=== PATIENT | female | born 1990 | race Hispanic/Latino ===

== ENCOUNTER 2017-01-14 13:58 | Emergency (ER) | payer MEDICAID ==
[2017-01-14 13:58] VITALS: BMI 17.2
[2017-01-14 14:43] VITALS: BP 106/65; PULSE 63; RESP 16; TEMP 97.5; O2SAT 100
--- NOTE | 2017-01-14 15:03 | C.PDOC ---
History Of Present Illness 26 y/o female presents to ED with complaints of nausea and mild constipation for 3 days. Patient also complaints of fever at night and night sweats. Patient has Hx of being a Heroin abuser, reports using 4 bags daily but cut off to two bags daily 1 week ago due to an appointment with new PMD for Suboxone therapy. Patient states she is late on her menses and she is sexually active without protection but says she has an irregular menses due to drug abuse. Patient denies cough, sore throat, n/v/d, chest pain, abdominal pain, urinary symptoms or any other complaints of this time. Time Seen by Provider: 01/14/17 14:33 Chief Complaint (Nursing): Medical Clearance History Per: Patient History/Exam Limitations: no limitations Onset/Duration Of Symptoms: Days Current Symptoms Are (Timing): Still Present Past Medical History Reviewed: Historical Data, Nursing Documentation, Vital Signs Vital Signs: Last Vital Signs Temp 97.5 F L 01/14/17 14:25 Pulse 63 01/14/17 14:25 Resp 16 01/14/17 14:25 BP 106/65 01/14/17 14:25 Pulse Ox 100 01/14/17 15:24 - Medical History PMH: Anxiety (severe), Depression, Hepatitis (C) - [facility] Procedures DETOXIFICATION SERVICES FOR SUBSTANCE ABUSE TREATMENT (08/08/16) GROUP METAL CUT OFF SAW TENDER FOR SUBSTANCE ABUSE TREATMENT, PSYCHOEDUCATION (08/08/16) MANUAL REMOVAL-PLACENTA (09/16/13) PHARMACOTHERAPY FOR SUBSTANCE ABUSE, OTH REPLACE MED (08/08/16) Family History: States: Unknown Family Hx - Social History Hx Tobacco Use: Yes Hx Alcohol Use: No Hx Substance Use: Yes - Immunization History Hx Tetanus Toxoid Vaccination: No Hx Influenza Vaccination: Yes Hx Pneumococcal Vaccination: No Review Of Systems Except As Marked, All Systems Reviewed And Found Negative. Constitutional: Positive for: Fever, Sweats. Negative for: Chills Cardiovascular: Negative for: Chest Pain Gastrointestinal: Positive for: Nausea, Constipation. Negative for: Vomiting, Diarrhea Genitourinary: Negative for: Dysuria Musculoskeletal: Negative for: Back Pain Physical Exam - Physical Exam Appears: Non-toxic, No Acute Distress Skin: Normal Color, Warm Head: Atraumatic, Normacephalic Eye(s): bilateral: Normal Inspection, PERRL, EOMI Nose: Normal Oral Mucosa: Moist Throat: Normal, No Erythema Neck: Normal ROM Cardiovascular: Rhythm Regular, No Murmur Gastrointestinal/Abdominal: Soft, No Tenderness, No Guarding, No Rebound Extremity: Normal ROM Neurological/Psych: Oriented x3, Normal Speech ED Course And Treatment O2 Sat by Pulse Oximetry: 100 (RA) Pulse Ox Interpretation: Normal Medical Decision Making Medical Decision Makin yo F presents for concern for possible . Although based on history and exam, symptoms are likely due to heroin withdrawal. HCG was negative for patient, patient will be discharged home and advised she makes the appointment with PMD for Suboxone therapy as scheduled. Disposition - Disposition Disposition: HOME/ ROUTINE Disposition Time: 15:00 Condition: GOOD Additional Instructions: Advised to f/u with your pmd as scheduled without fail. Return to the ER at any time for any new or worsening symptoms. Instructions: Opioid Withdrawal (ED) Print Language: INDONESIAN - Clinical Impression Clinical Impression: Opioid use disorder, severe, dependence, Opioid withdrawal, test negative - PA / TOBACCO CLASSER / Resident Statement MD/DO has reviewed & agrees with the documentation as recorded. - Scribe Statement The provider has reviewed the documentation as recorded by the Edilmaibraven Grimes All medical record entries made by the Yyeo were at my direction and personally dictated by me. I have reviewed the chart and agree that the record accurately reflects my personal performance of the history, physical exam, medical decision making, and the department course for this patient. I have also personally directed, reviewed, and agree with the discharge instructions and disposition.
== END 2017-01-14 15:03 | disposition home or self-care (01) ==
LOC: C.ER 13:58
DX: F11.20 Opioid dependence, uncomplicated (principal); F11.23 Opioid dependence with withdrawal; Z32.02 Encounter for pregnancy test, result negative

== ENCOUNTER 2017-01-23 18:38 | Inpatient (IN) | payer MEDICAID ==
[2017-01-23 18:38] VITALS: BMI 17.2
--- NOTE | 2017-01-23 19:25 | C.PDOC ---
History Of Present Illness Patient is a 26 year old female who is a prescreen for detox from heroin, benzos and cocaine. Patient states in 1 day she injects 4 bags of heroin to the arms bilaterally, takes klonopin and $20 of cocaine a day. Denies any physical complaints at this time. Time Seen by Provider: 01/23/17 18:54 Chief Complaint (Nursing): Substance Abuse History Per: Patient History/Exam Limitations: no limitations Onset/Duration Of Symptoms: Hrs Suicide/Self Injury Attempted (Context): None Modifying Factor(s): Narcotics, Cocaine Associated Symptoms: denies: Depression, Suicidal Thoughts, Suicidal Plan Recent travel outside of the [place]: No Past Medical History Reviewed: Historical Data, Nursing Documentation, Vital Signs Vital Signs: Last Vital Signs Temp 98 F 01/23/17 18:43 Pulse 88 01/23/17 18:43 Resp 20 01/23/17 18:43 BP 108/74 01/23/17 18:43 Pulse Ox 98 01/23/17 22:04 - Medical History PMH: Anxiety, Depression, Hepatitis (C) - [facility] Procedures DETOXIFICATION SERVICES FOR SUBSTANCE ABUSE TREATMENT (08/08/16) GROUP NATIONAL PARK RANGER FOR SUBSTANCE ABUSE TREATMENT, PSYCHOEDUCATION (08/08/16) MANUAL REMOVAL-PLACENTA (09/16/13) PHARMACOTHERAPY FOR SUBSTANCE ABUSE, OTH REPLACE MED (08/08/16) Family History: States: Unknown Family Hx - Social History Hx Tobacco Use: Yes Hx Alcohol Use: No Hx Substance Use: Yes - Immunization History Hx Tetanus Toxoid Vaccination: Yes Hx Influenza Vaccination: No Hx Pneumococcal Vaccination: No Review Of Systems Constitutional: Negative for: Fever, Chills Gastrointestinal: Negative for: Nausea, Vomiting, Diarrhea Physical Exam - Physical Exam Appears: Non-toxic, No Acute Distress Skin: Normal Color, Warm, Dry Head: Atraumatic, Normacephalic Oral Mucosa: Moist Chest: Symmetrical, No Tenderness Cardiovascular: Rhythm Regular, No Murmur Respiratory: Normal Breath Sounds, No Rales, No Rhonchi, No Wheezing Gastrointestinal/Abdominal: Soft, No Tenderness Extremity: Other (Track beckwith to the bilateral distal forearms, no erythema or abscess) Neurological/Psych: Oriented x3, Normal Speech, Normal Cognition ED Course And Treatment - Laboratory Results Result Diagrams: 01/23/17 19:26 01/23/17 19:26 Lab Interpretation: Abnormal (tpx + cocaine, opiates, benzo's) Urine POC: Negative O2 Sat by Pulse Oximetry: 98 (Room air) Pulse Ox Interpretation: Normal Progress Note: Blood work and urinalysis ordered. Reevaluation Time: 22:03 Reassessment Condition: Unchanged (remains calm, cooperative) - Physician Consult Information Outcome Of Conversation: 2200: d/w Crisis- ok to Detox Disposition Doctor Will See Patient In The: Hospital Counseled Patient/Family Regarding: Studies Performed, Diagnosis - Disposition Disposition: HOSPITALIZED Disposition Time: 22:03 Condition: GOOD - Clinical Impression Clinical Impression: Opioid use disorder, severe, dependence, Cocaine use disorder, severe, dependence, Benzodiazepine abuse - Scribe Statement The provider has reviewed the documentation as recorded by the Scribraven Ureña All medical record entries made by the Scribe were at my direction and personally dictated by me. I have reviewed the chart and agree that the record accurately reflects my personal performance of the history, physical exam, medical decision making, and the department course for this patient. I have also personally directed, reviewed, and agree with the discharge instructions and disposition.
[2017-01-23 19:31] LABS: BASO # 0.1 K/uL (0.0-0.2); BASO % 0.9 % (0.0-2.0); EOS # 0.5 K/uL (0.0-0.7); EOS % 6.5 % (0.0-4.0); HEMOGLOBIN 11.5 g/dL (11.0-16.0); LYMPH # 3.1 K/uL (1.0-4.3); LYMPH % 38.4 % (20.0-40.0); MEAN CORPUSCULAR HEMOGLOBIN 28.3 pg (27.0-31.0); MEAN CORPUSCULAR HGB CONC 32.9 g/dL (33.0-37.0); MEAN PLATELET VOLUME 7.5 fL (7.2-11.7); MONO # 0.7 K/uL (0.0-0.8); MONO % 8.4 % (0.0-10.0); NEUT # 3.7 K/uL (1.8-7.0); NEUT % 45.8 % (50.0-75.0); RBC 4.05 Mil/uL (3.80-5.20); RED CELL DISTRIBUTION WIDTH 13.8 % (11.5-14.5); WHITE BLOOD COUNT 8.2 K/uL (4.8-10.8)
[2017-01-23 19:36] LABS: HCG,QUALITATIVE URINE NEGATIVE (NEGATIVE)
[2017-01-23 19:38] LABS: SQUAMOUS EPITHIAL 5 /hpf (0-5); URINE BACTERIA RARE (<OCC); URINE BILIRUBIN NEGATIVE (NEGATIVE); URINE BLOOD NEGATIVE (NEGATIVE); URINE CLARITY Hazy (Clear); URINE COLOR Yellow (YELLOW); URINE GLUCOSE (UA) NORMAL (Normal); URINE LEUKOCYTE ESTERASE NEG Leu/uL (Negative); URINE NITRATE NEGATIVE (NEGATIVE); URINE PROTEIN NEGATIVE (NEGATIVE); URINE UROBILINOGEN NORMAL mg/dL (0.2-1.0)
[2017-01-23 19:39] LABS: ALBUMIN 3.9 g/dL (3.5-5.0)
[2017-01-23 19:41] LABS: GFR AFRICAN-AMERICAN > 60; GFR NON-AFRICAN AMERICAN > 60
[2017-01-23 19:42] LABS: ALT/SGPT 24 U/L (9-52); AST/SGOT 16 U/L (14-36); BLOOD UREA NITROGEN 15 mg/dL (7-17)
[2017-01-23 19:44] LABS: BARBITURATES, UR NEGATIVE (NEGATIVE)
[2017-01-23 19:48] LABS: PHENCYCLIDINE, UR NEGATIVE (NEGATIVE)
[2017-01-23 19:54] LABS: BENZODIAZEPINES, UR POSITIVE (NEGATIVE); OPIATES, UR POSITIVE (NEGATIVE)
[2017-01-24] MEDS ORDERED: Buprenorphine Hydrochloride 2 mg SL ONE ×2 (08:59→09:30)
--- NOTE | 2017-01-24 14:07 | PCM.PSYCH ---
Initial Psychiatric Evaluation - Initial Psychiatric Evaluation Type of Admission: Voluntary Legal Status: Capacity Chief Complaint (in patient's own words): "I relapsed" History of Present Illness and Precipitating Events: She is seen, chart reviewed case discussed She is known from previous admissions. Patient is a 26 year old female who presents for heroin detox. Pt states that she has been injecting 20 bags of heroin a day for the past 18 years. She also admits to using benzos 6 mg /day for the past year, and smoking $20 worth crack cocaine for the past 7 years. Pt admits that her last use was yesterday. She claims she went to [facility] after her detox here and stayed clean for a month or two but then relapsed bc of her BF. She now wants to go to a rehab She also reports feeling depressed and excessive worrying, anxiety, panic attacks. Past Psych History: Denies inpatient, outpatient psychiatric treatment. Social History: Pt is currently unemployed but gets her money from her parents and by "harper handling" Home: Pt lives with a male friend who "does not use" Education: Completed till 11th grade Alcohol: Denies Tobacco: 1 pack/day for 3 years Legal: Denies Family History: Father 5 years ago from drug/alcohol abuse, mother has history of drug abuse in past, mom's brother from drug/alcohol abuse Medical History: Hep C, negative for HIV in the past Allergies: Denies Current Medications: Active Medications Generic Name Dose Route Start Last Admin Trade Name Freq PRN Reason Stop Dose Admin Buprenorphine HCl 0 mg 01/25/17 10:00 Subutex SL 01/29/17 09:59 .TAPER ALEKSANDR Taper Fluoxetine HCl 20 mg 01/24/17 10:00 01/24/17 10:28 Prozac PO 20 mg DAILY ALEKSANDR Administration Gabapentin 800 mg 01/24/17 14:00 Neurontin PO TID ALEKSANDR Hydroxyzine HCl 25 mg 01/24/17 13:29 01/24/17 13:55 Atarax PO 25 mg Q4 PRN Administration Anxiety Ibuprofen 600 mg 01/24/17 09:49 01/24/17 11:43 Motrin Tab PO 600 mg Q8 PRN Administration Pain, moderate (4-7) Lorazepam 1 mg 01/23/17 22:26 01/24/17 11:25 Ativan PO 1 mg Q8 PRN Administration Other- PRN Anxiety, Withdrawal Pneumococcal Polyvalent Vaccine 0.5 ml 01/27/17 10:00 Pneumovax 23 Vaccine IM 01/27/17 10:01 .ONCE ONE Quetiapine Fumarate 200 mg 01/23/17 22:30 01/23/17 23:30 Seroquel PO 200 mg HS ALEKSANDR Administration Past Psychiatric History - Past Psychiatric History Previous Treatment History: None Pertinent Medical Hx (Current Medical&Sleep Prob, Allergies): Allergies Allergy/AdvReac Type Severity Reaction Status Date / Time No Known Allergies Allergy Verified 08/08/16 22:14 FLUoxetine [Prozac] 20 mg PO DAILY #30 cap 08/12/16 Gabapentin [Neurontin] 900 mg PO TID 01/23/17 Review of Systems - Neurological Neurological: UNREMARKABLE - Psychiatric Psychiatric: Abnormal Sleep Pattern, Anxiety. absent: Depression, Hallucinations, Homicidal Ideation, Suicidal Ideation Mental Status Examination - Personal Presentation Personal Presentation: Looks older than stated age - Affect Affect: Constricted - Motor Activity Motor Activity: Calm - Reliability in Providing Information Reliability in Providing Information: Good - Speech Speech: Organized - Mood Mood: Anxious - Formal Thought Process Formal Thought Process: No Impairment - Cognitive Functions Orientation: Person, Place, Situation, Time Sensorium: Alert Attention/Concentration: Attentive Abstract Thinking: [place] Estimate of Intelligence: Average Judgement: Intact, as evidence by: Insight regarding need for hospitalization Memory: Recent intact, as evidence by: Ability to recall events of the day, Remote intact, as evidenced by: Abilit to recall sig. life events - Risk Risk: Withdrawal, Diminished functioning - Strength & Assets Inventory Strength & Assets Inventory: Cooperative - Limitations Limitations: Living alone DSM 5 DX - DSM 5 DSM 5 Diagnosis: Opioid withdrawal opioid use d/o - severe Cocaine use d/o - severe Sedative hypnotic use d/o - severe Depressive d/o - unspecified ASAEL - Recommended/Plan of Treatment Treatment Recommendations and Plan of Treatment: Subutex detox Sx-based ativan detox As needed meds Attend groups and activities ND and CBT refer to rehab or back to IOP Consider MAT for opioids Prozac and Seroquel for depression gabapentin for anxiety and bzd wdw CBt 34 min Projected ELOS: 4 days Prognosis: good w treatment Discharge Plan and Discharge Criteria: no wdw sxs Refer to rehab
[2017-01-24] MEDS ORDERED: Magnesium Hydroxide Susp 30 ml UD PO ONE (17:20)
[2017-01-25] MEDS ORDERED: Buprenorphine Hydrochloride 2 mg SL SCH (10:00)
[2017-01-25] MEDS ORDERED: Vitamins A & D Oint UD Foilpak TOP PRN (17:22)
--- NOTE | 2017-01-26 00:06 | PCM.PYCHPN ---
Psychiatric Progress Note - Psychiatric Progress Note Patient seen today, length of contact: 16 min Patient Chief Complaint: "I am very anxious" Problems Identified/Issues Discussed: The pt is seen, chart reviewed, case discussed with staff. Support given, CBT and AL used briefly No new symptoms reported, improving slowly and needs some more time No SEs from medications, risks discussed. After care discussed - interested in rehab She is observed to be med-seeking a lot Medication Change: Yes (detox changes daily) Medical Record Reviewed: Yes Mental Status Examination - Cognitive Function Orientation: Person, Place, Situation, Time Memory: Intact Attention: WNL Concentration: WNL Association: WNL Fund of Knowledge: WNL - Mood Mood: Anxious - Affect Affect: Constricted - Speech Speech: Appropriate - Formal Thought Process Formal Thought Process: No Impairment - Suicidal Ideation Suicidal Ideation: No - Homicidal Ideation Homicidal Ideation: No Goal/Treatment Plan - Goal/Treatment Plan Need for Continued Stay: Discharge may exacerbated symptoms, Severe functional impairment Progress Toward Problem(s) and Goals/Treatment Plan: Subutex detox Sx-based ativan detox As needed meds Attend groups and activities AL and CBT refer to rehab or back to IOP Consider MAT for opioids Prozac and Seroquel for depression Seroquel increased due to insomnia gabapentin for anxiety and bzd wdw CBT Estimated Date of D/C: 01/28/17
[2017-01-26] MEDS ORDERED: Buprenorphine Hydrochloride 2 mg SL ONE (09:51)
--- NOTE | 2017-01-26 10:33 | PCM.PYCHPN ---
Psychiatric Progress Note - Psychiatric Progress Note Patient seen today, length of contact: 16 min Patient Chief Complaint: "I am still nervous but better than before" Problems Identified/Issues Discussed: The pt is seen, chart reviewed, case discussed with staff. Support given, PA used. No new symptoms reported, improving slowly. No SEs from medications, risks discussed. After care discussed - interested in rehab - applications are made. She is observed to be med-seeking a lot, but less today. She is also preoccupied with the rx she'll get on d/c Medication Change: Yes (detox changes daily) Medical Record Reviewed: Yes Mental Status Examination - Cognitive Function Orientation: Person, Place, Situation, Time Memory: Intact Attention: WNL Concentration: WNL Association: WNL Fund of Knowledge: WNL - Mood Mood: Anxious - Affect Affect: Constricted - Speech Speech: Appropriate - Formal Thought Process Formal Thought Process: No Impairment - Suicidal Ideation Suicidal Ideation: No - Homicidal Ideation Homicidal Ideation: No Goal/Treatment Plan - Goal/Treatment Plan Need for Continued Stay: Discharge may exacerbated symptoms, Severe functional impairment Progress Toward Problem(s) and Goals/Treatment Plan: Subutex detox Sx-based ativan detox As needed meds Attend groups and activities PA and CBT refer to rehab or back to IOP Consider MAT for opioids Prozac and Seroquel for depression Seroquel increased due to insomnia gabapentin for anxiety and bzd wdw CBT Estimated Date of D/C: 01/28/17
--- NOTE | 2017-01-26 14:11 | RAD ---
HISTORY: rehab clearance COMPARISON: 12/10/2014 TECHNIQUE: Chest PA and lateral FINDINGS: LUNGS: The lungs are well inflated and clear. PLEURA: No significant pleural effusion identified. No pneumothorax apparent. CARDIOVASCULAR: Normal. OSSEOUS STRUCTURES: No significant abnormalities. VISUALIZED UPPER ABDOMEN: Normal. OTHER FINDINGS: None. IMPRESSION: No active pulmonary disease.
[2017-01-27 06:04] VITALS: RESP 18
--- NOTE | 2017-01-27 08:41 | PCM.PYCHDC ---
Mental Status Examination - Mental Status Examination Orientation: Person, Place, Situation, Time Memory: Intact Mood: Anxious Affect: Broad Speech: Appropriate Attention: WNL Concentration: WNL Association: WNL Fund of Knowledge: WNL Formal Thought Process: No Impairment Suicidal Ideation: No Current Homicidal Ideation?: No Discharge Summary - Discharge Note Reason for Hospitalization: Heroin detox Psychiatric History (includes Medical, Family, Personal Hx): Depression and ASAEL Consultations:: List each consultation separately and include: 1. Reason for request. 2. Findings. 3. Follow-up Summary of Hospital Course include:: 1. Description of specific treatment plan utilized for patients during their course of treatmen. 2. Summarize the time- course for resolution of acute symptoms and/or regressed behaviors. 3. Describe issues identified and worked on during hospitalization. 4. Describe medication utilized. 5. Describe medical problems identified and treated. 6. Reassessment of suicide risk Summary of Hospital Course: She is seen, chart reviewed case discussed On admission: Patient is a 26 year old female who presents for heroin detox. Pt states that she has been injecting 20 bags of heroin a day for the past 18 years. She also admits to using benzos 6 mg /day for the past year, and smoking $20 worth crack cocaine for the past 7 years. Pt admits that her last use was yesterday. She claims she went to [facility] after her detox here and stayed clean for a month or two but then relapsed bc of her BF. She now wants to go to a rehab She also reports feeling depressed and excessive worrying, anxiety, panic attacks. Past Psych History: Denies inpatient, outpatient psychiatric treatment. Social History: Pt is currently unemployed but gets her money from her parents and by "harper handling" Home: Pt lives with a male friend who "does not use" Education: Completed till 11th grade Alcohol: Denies Tobacco: 1 pack/day for 3 years Legal: Denies Family History: Father 5 years ago from drug/alcohol abuse, mother has history of drug abuse in past, mom's brother from drug/alcohol abuse Medical History: Hep C, negative for HIV in the past Allergies: Denies Hospital course: The pt was admitted and started on treatment with psychotherapy, support, psychoeducation and medications. NE and CBT used. The pt attended groups and activities, as well as milieu therapy. All the risks and benefits of medications are discussed and the patient understood and agreed. She has improved with the treatment and left. However, during her stay she remained anxious and at times med-seeking. After care discussed with the patient. She is accepted by [facility] rehab. She plans to stay 2-3 months - Final Diagnosis (DSM 5) Condition upon Discharge: IMPROVED DSM 5: Opioid withdrawal opioid use d/o - severe Cocaine use d/o - severe Sedative hypnotic use d/o - severe Depressive d/o - unspecified ASAEL Disposition: REHAB FACILITY/REHAB UNIT Follow-up Treatment Plan: Continue below medications after discharge. Follow after care plan as discussed at [facility] Use relapse prevention skills Return to ER or call 911 if suicidal, homicidal or symptoms relapse. Stay away from stress, alcohol and drugs. See primary doctor once a year. Prescriptions/Medication Reconciliation: FLUoxetine [Prozac] 20 mg PO DAILY #30 cap Gabapentin [Neurontin] 800 mg PO TID #90 tab hydrOXYzine HCl [Atarax] 25 mg PO Q6 #60 tab QUEtiapine [SEROquel] 300 mg PO HS #30 tab - Smoking Cessation Smoking Cessation Medication prescribed: No - Antipsychotic Medications Pt discharged on 2 or more routine antipsychotic medications: No
[2017-01-27 09:23] VITALS: BP 110/70; PULSE 72; TEMP 98; O2SAT 100
[2017-01-27] MEDS ORDERED: Buprenorphine Hydrochloride 2 mg SL ONE (09:52)
[2017-01-27] MEDS ORDERED: Pneumococcal 23-Valent Vaccine IM ONE (10:00)
== END 2017-01-27 10:15 | disposition home or self-care (01) | DRG 744 ==
LOC: C.ER 18:38 → C.7D 22:01
PROVIDERS: ADMIT Psychiatry & Neurology Psychiatry; ATTEND Psychiatry & Neurology Psychiatry
PROC: HZ2ZZZZ Detoxification Services for Substance Abuse Treatment (ICD-10-PCS; principal; 2017-01-23)
PROC: HZ52ZZZ Individual Psychotherapy for Substance Abuse Treatment, Cognitive-Behavioral (ICD-10-PCS; 2017-01-23)
PROC: HZ59ZZZ Individual Psychotherapy for Substance Abuse Treatment, Supportive (ICD-10-PCS; 2017-01-23)
PROC: HZ56ZZZ Individual Psychotherapy for Substance Abuse Treatment, Psychoeducation (ICD-10-PCS; 2017-01-23)
PROC: GZHZZZZ Group Psychotherapy (ICD-10-PCS; 2017-01-23)
DX: F11.23 Opioid dependence with withdrawal (principal); B19.20 Unspecified viral hepatitis C without hepatic coma; F13.19 Sedative, hypnotic or anxiolytic abuse with unspecified sedative, hypnotic or anxiolytic-induced disorder; F14.10 Cocaine abuse, uncomplicated; F32.9 Major depressive disorder, single episode, unspecified; F17.210 Nicotine dependence, cigarettes, uncomplicated; F41.1 Generalized anxiety disorder; G47.00 Insomnia, unspecified

== ENCOUNTER 2017-07-03 18:04 | Inpatient (IN) | payer MEDICAID, OTHER ==
[2017-07-03 18:04] VITALS: BMI 17.2
--- NOTE | 2017-07-03 19:21 | C.PDOC ---
History Of Present Illness 27 year old female with hx of heroin addiction presents to the ED for evaluation of depression and SI. Patient states her last use of heroin was today , and can not live like this anymore, patient is depressed currently living on the streets and stating she wants to . Denies any other physical complaint at this time. Time Seen by Provider: 07/03/17 18:51 Chief Complaint (Nursing): Psychiatric Evaluation History Per: Patient History/Exam Limitations: no limitations Onset/Duration Of Symptoms: Hrs Current Symptoms Are (Timing): Still Present Suicide/Self Injury Attempted (Context): None Modifying Factor(s): Other (Heroin) Severity: Mild Associated Symptoms: Depression, Suicidal Thoughts Involuntary Hold By: None Recent travel outside of the [place]: No Additional History Per: Patient Past Medical History Reviewed: Historical Data, Nursing Documentation, Vital Signs Vital Signs: Last Vital Signs Temp 97.7 F 07/03/17 18:11 Pulse 68 07/03/17 18:11 Resp 20 07/03/17 18:11 BP 102/66 07/03/17 18:11 Pulse Ox 99 07/03/17 19:24 - Medical History PMH: Anxiety, Depression, Hepatitis (C) Denies: Diabetes (Patient denied), HTN (Patient denied), Chronic Kidney Disease, Seizures (Patient denied), Sexually Transmitted Disease (Patient denied ) Comment Only: HIV (Patient denied) Surgical History: No Surg Hx - [facility] Procedures DETOXIFICATION SERVICES FOR SUBSTANCE ABUSE TREATMENT (01/23/17) GROUP BAR HOST/HOSTESS FOR SUBSTANCE ABUSE TREATMENT, PSYCHOEDUCATION (08/08/16) GROUP PSYCHOTHERAPY (01/23/17) INDIV PSYCHOTHERAPY FOR SUBSTANCE ABUSE TREATMENT, SUPPORT (01/23/17) INDIV PSYCHOTHERAPY FOR SUBSTANCE ABUSE, COGNITIV BEHAVIORAL (01/23/17) INDIV PSYCHOTHERAPY FOR SUBSTANCE ABUSE, PSYCHOEDUCATION (01/23/17) MANUAL REMOVAL-PLACENTA (09/16/13) PHARMACOTHERAPY FOR SUBSTANCE ABUSE, OTH REPLACE MED (08/08/16) Family History: States: Unknown Family Hx - Social History Hx Tobacco Use: Yes Hx Alcohol Use: No Hx Substance Use: Yes - Immunization History Hx Tetanus Toxoid Vaccination: Yes Hx Influenza Vaccination: No Hx Pneumococcal Vaccination: No Review Of Systems Constitutional: Negative for: Fever, Chills Cardiovascular: Negative for: Chest Pain Respiratory: Negative for: Shortness of Breath Gastrointestinal: Negative for: Nausea, Vomiting, Abdominal Pain Skin: Positive for: Other (Needle track beckwith) Neurological: Negative for: Weakness, Numbness Psych: Positive for: Depression, Suicidal ideation Physical Exam - Physical Exam Appears: Non-toxic, No Acute Distress Skin: Normal Color, Warm, Dry, Other (Needle track beckwith) Head: Atraumatic, Normacephalic Eye(s): bilateral: Normal Inspection Nose: No Discharge Oral Mucosa: Moist Neck: Normal ROM, Supple Chest: Symmetrical Cardiovascular: Rhythm Regular, No Murmur Respiratory: Normal Breath Sounds, No Rales, No Rhonchi, No Wheezing Gastrointestinal/Abdominal: Soft, No Tenderness, No Distention, No Guarding, No Rebound Extremity: Normal ROM, No Pedal Edema, No Calf Tenderness, No Deformity, No Swelling Neurological/Psych: Oriented x3, Normal Speech, Normal Cognition Gait: Steady ED Course And Treatment - Laboratory Results Result Diagrams: 07/03/17 19:38 07/03/17 19:38 Lab Interpretation: No Acute Changes O2 Sat by Pulse Oximetry: 99 (On RA) Pulse Ox Interpretation: Normal Progress Note: Patient is medically cleared for psychiatric admission. Medical Decision Making Medical Decision Making: Plan: * Blood work ordered * UA ordered * 1:1 ordered Disposition - Disposition Disposition: HOSPITALIZED Disposition Time: 19:57 Condition: STABLE - POA Present On Arrival: None - Clinical Impression Clinical Impression: Moderate major depression, single episode, Polysubstance abuse, Suicidal ideation - Scribe Statement The provider has reviewed the documentation as recorded by the Scribe Jung Lamb All medical record entries made by the Scribe were at my direction and personally dictated by me. I have reviewed the chart and agree that the record accurately reflects my personal performance of the history, physical exam, medical decision making, and the department course for this patient. I have also personally directed, reviewed, and agree with the discharge instructions and disposition.
[2017-07-03 19:44] LABS: BASO # 0.1 K/uL (0.0-0.2); BASO % 1.6 % (0.0-2.0); EOS # 0.4 K/uL (0.0-0.7); EOS % 4.9 % (0.0-4.0); HEMATOCRIT 33.8 % (34.0-47.0); LYMPH # 2.7 K/uL (1.0-4.3); LYMPH % 35.4 % (20.0-40.0); MEAN CORPUSCULAR HEMOGLOBIN 26.9 pg (27.0-31.0); MEAN CORPUSCULAR HGB CONC 32.3 g/dL (33.0-37.0); MONO # 0.6 K/uL (0.0-0.8); MONO % 7.4 % (0.0-10.0); WHITE BLOOD COUNT 7.6 K/uL (4.8-10.8)
[2017-07-03 19:47] LABS: MEAN CELL VOLUME 83.2 fL (81.0-99.0)
[2017-07-03 19:55] LABS: ALB/GLOB RATIO 1.3 (1.0-2.1); ALCOHOL SERUM < 10 mg/dl (0-10); ALKALINE PHOSPHATASE 63 U/L (38-126); ALT/SGPT 33 U/L (9-52); AST/SGOT 22 U/L (14-36); BILIRUBIN,TOTAL 0.4 mg/dL (0.2-1.3); BLOOD UREA NITROGEN 11 mg/dL (7-17); CALCIUM 8.6 mg/dl (8.6-10.4); CARBON DIOXIDE 29 mmol/L (22-30); CHLORIDE 103 mmol/L (98-107); GFR AFRICAN-AMERICAN > 60; GLUCOSE,RANDOM 124 mg/dL (65-105); POTASSIUM 3.6 mmol/L (3.6-5.2); SODIUM 140 mmol/L (132-148); TOTAL PROTEIN 7.1 g/dL (6.3-8.3)
[2017-07-03 20:13] LABS: RBC URINE 7 /hpf (0-3); URINE BACTERIA RARE (<OCC); URINE BILIRUBIN NEGATIVE (NEGATIVE); URINE BLOOD 3+ (NEGATIVE); URINE COLOR Yellow (YELLOW); URINE GLUCOSE (UA) NORMAL (Normal); URINE KETONE TRACE mg/dL (NEGATIVE); URINE LEUKOCYTE ESTERASE NEG Leu/uL (Negative); URINE PROTEIN 1+ mg/dL (NEGATIVE); WBC URINE 11 /hpf (0-5)
--- NOTE | 2017-07-03 21:24 | PCM.BM ---
<Sanjuanita Gore - Last Filed: 07/03/17 21:22> Treatment Plan Problems - Problems identified on initial assessmt Suicidal ideation Date Initiated: 07/03/17 Time Initiated: 20:50 Assessment reference: NA Status: Active Depression Date Initiated: 07/03/17 Time Initiated: 20:50 Assessment reference: NA Status: Active Treatment assets and liabiliti Patient Assests: cooperative, ADL independent, negotiates basic needs Patient Liabilities: live alone, substance abuse - Milieu Protocol Maintain good personal hygiene: daily Encourage regular showers, daily Remind patient to perform daily oral care, daily Assist patient to perform ADL's Conduct patient checks and document Observation sheet: Q15 minutes Maintain personal safety: every shift Educate patient to report safety concerns to staff, every shift Monitor environment for contraband/sharps Medication safety: Monitor for expected outcome, potential side effects: every shift, Assess barriers to learning: every shift, Assess readiness for medication education: every shift <Erin Mccarthy - Last Filed: 07/04/17 18:32> - Diagnosis (1) Moderate major depression, single episode Status: Acute Interventions: 07/04/17 18:32 * Assess/adjust medications daily and /or as needed * See patient on an individual basis 7x/week to assess level of depressive behaviors and stability * Discuss risks, benefits, side effects and alternatives of medications * (2) Opioid use disorder, severe, dependence Status: Acute Interventions: 07/04/17 18:32 * Assess 7x/week regarding severity of withdrawal * Educate regarding risks, benefits, side effects and alternatives of medications * Use Motivational Interviewing for abstinence * Use CBT for relapse prevention * Medication management for withdrawal symptoms * Encourage medication assisted treatment * <Ladi Hernandez - Last Filed: 07/07/17 10:37> Family Contact Family involvement: Family/SO is involved Family contact: Patient declines to allow family contact at present Discharge/Continuing Care - Education Needs Education Needs: Patient Medication, Patient Coping Skills, Patient Placement options, Patient Community resources - Discharge Discharge Criteria: Tolerates medication w/o severe side effects, No longer exhibiting s/s of withdrawal Discharge to:: Home - Treatment Team Participation Discussed with Family/SO: No Was Patient/Family/SO present at Treatment Team Meeting: Yes
[2017-07-03] MEDS ORDERED: Aluminum Hydroxide/Magnesium Hydroxide Susp (30 mL) PO PRN (23:10)
--- NOTE | 2017-07-04 13:08 | PCM.PSYCH ---
Initial Psychiatric Evaluation - Initial Psychiatric Evaluation Type of Admission: Voluntary Legal Status: Capacity Chief Complaint (in patient's own words): I was feeling depressed and suicidal.' History of Present Illness and Precipitating Events: Patient is a 27 y/o CF, currently homeless and unemployed came to the ED with depressed mood, opioid abuse and suicidal ideation. As per the ED cjhart:, patient has a long history of using Heroin, and Cocaine. Patient has a history of abusing Xanax, patient denied using Xanax at this time. Patient had two prior admissions for detox at on August 2016 and December 2016. Patient stated that she followed up with recommendations and attended [facility] for 30 days. Patient states that she should had stayed longer in the program. Patient reported feeling suicidal since yesterday. Patient reported that her plan is to overdose with as many substances that she can get. Patient reported injecting 10-20 bags of Heroin and reported using $40 worth of cocaine yesterday. Patient reports depressed mood, feelings of hopelessness and helplessness. She reports poor sleep and poor appetite. She denies any homicidal ideation. She denies any auditory or visual hallucinations or any psychotic or manic symptoms symptoms. She reports anxiety and irritability and reports withdrawal symptoms i.e., sweating, headaches, anxiety, back and joint pains, nausea and abdominal cramps. Past Psych History: No history of any inpatient, outpatient psychiatric treatment, however she has been to multiple detoxes in the past Family History: Father 5 years ago from drug/alcohol abuse, Mother has history of drug abuse in past, Maternal Uncle from drug/alcohol abuse PMH: Hep C Current Medications: Active Medications Generic Name Dose Route Start Last Admin Trade Name Freq PRN Reason Stop Dose Admin Al Hydrox/Mg Hydrox/Simethicone 30 ml 07/03/17 23:10 Maalox 30 Ml PO TID PRN Indigestion / Heartburn Clonidine HCl 0.1 mg 07/03/17 23:10 Catapres PO Q8 PRN COWS Score More or Equal to 5 Fluoxetine HCl 20 mg 07/04/17 10:00 07/04/17 09:49 Prozac PO 20 mg DAILY ALEKSANDR Administration Gabapentin 300 mg 07/04/17 10:00 07/04/17 09:49 Neurontin PO 300 mg TID ALEKSANDR Administration Hydroxyzine HCl 25 mg 07/03/17 23:11 Atarax PO Q6 PRN Anxiety Loperamide HCl 2 mg 07/03/17 23:10 Imodium PO Q8 PRN Diarrhea Ondansetron HCl 4 mg 07/03/17 23:10 Zofran Tab PO Q8 PRN Nausea/Vomiting Pneumococcal Polyvalent Vaccine 0.5 ml 07/06/17 10:00 Pneumovax 23 Vaccine IM 07/06/17 10:01 .ONCE ONE Quetiapine Fumarate 100 mg 07/03/17 23:15 Seroquel PO HS ALEKSANDR Trazodone HCl 50 mg 07/03/17 23:12 Desyrel PO HS ALEKSANDR Past Psychiatric History - Past Psychiatric History Previous Treatment History: Inpatient Pertinent Medical Hx (Current Medical&Sleep Prob, Allergies): Allergies Allergy/AdvReac Type Severity Reaction Status Date / Time No Known Allergies Allergy Verified 07/03/17 18:14 FLUoxetine [Prozac] 20 mg PO DAILY #30 cap 08/12/16 Gabapentin [Neurontin] 900 mg PO TID 01/23/17 FLUoxetine [Prozac] 20 mg PO DAILY #30 cap 01/26/17 Gabapentin [Neurontin] 800 mg PO TID #90 tab 01/26/17 QUEtiapine [SEROquel] 300 mg PO HS #30 tab 01/26/17 hydrOXYzine HCl [Atarax] 25 mg PO Q6 #60 tab 01/26/17 Review of Systems - Review of Systems All systems: reviewed and no additional remarkable complaints except - Psychiatric Psychiatric: Anxiety, Depression, Hopelessness, Irritability, Suicidal Ideation Mental Status Examination - Personal Presentation Personal Presentation: Looks stated age - Affect Affect: Constricted, Depressed - Motor Activity Motor Activity: Calm - Reliability in Providing Information Reliability in Providing Information: Good - Speech Speech: Organized - Mood Mood: Depressed, Anxious - Formal Thought Process Formal Thought Process: No Impairment - Obsessions/Compulsions Obsessions: No Compulsions: No - Cognitive Functions Orientation: Person, Place, Situation, Time Sensorium: Alert Attention/Concentration: Attentive Abstract Thinking: [place] Estimate of Intelligence: Below average Judgement: Imparied, as evidence by: Poor judgement, Imparied, as evidence by: Lack of insight into illness - Risk Risk: Suicidal, Withdrawal, Diminished functioning DSM 5 DX - DSM 5 DSM 5 Diagnosis: Major depressive disorder recurrent severe without psychotic features Opioid use disorder severe Opioid withdrawal - Recommended/Plan of Treatment Treatment Recommendations and Plan of Treatment: Major depressive disorder recurrent severe without psychotic features CBT Psychoeducation Supportive therapy, group therapy, individual therapy Gabapentin 300 mg PO TID Fluoxetine 20 mg PO Daily Seroquel 100 mg PO QHS Trazodone 50 mg by mouth daily at bedtime Opioid use disorder severe CBT Psychoeducation Supportive therapy, individual therapy Use [place] for abstinence Opioid withdrawal CBT Psychoeducation Supportive therapy, individual therapy Clonidine when necessary Methadone taper - Smoking Cessation Smoking Cessation Initiated: No
[2017-07-05] MEDS: Vitamins A & D Oint UD Foilpak TOP PRN (11:19)
--- NOTE | 2017-07-05 12:08 | PCM.PYCHPN ---
Psychiatric Progress Note - Psychiatric Progress Note Patient Chief Complaint: I was feeling depressed and suicidal.' Mental Status Examination - Cognitive Function Orientation: Person, Place, Situation, Time - Mood Mood: Depressed, Anxious - Affect Affect: Constricted, Depressed - Formal Thought Process Formal Thought Process: No Impairment - Homicidal Ideation Homicidal Ideation: No Goal/Treatment Plan - Goal/Treatment Plan Progress Toward Problem(s) and Goals/Treatment Plan: Major depressive disorder recurrent severe without psychotic features CBT Psychoeducation Supportive therapy, group therapy, individual therapy Gabapentin 300 mg PO TID Fluoxetine 20 mg PO Daily Seroquel 100 mg PO QHS Trazodone 50 mg by mouth daily at bedtime Opioid use disorder severe CBT Psychoeducation Supportive therapy, individual therapy Use [place] for abstinence Opioid withdrawal CBT Psychoeducation Supportive therapy, individual therapy Clonidine when necessary Methadone taper
[2017-07-05 16:24] VITALS: O2SAT 54
[2017-07-06] MEDS: Vitamins A & D Oint UD Foilpak TOP PRN (09:56)
[2017-07-06] MEDS ORDERED: Pneumococcal 23-Valent Vaccine IM ONE (10:00)
[2017-07-06] MEDS ORDERED: Influenza Vaccine 60 mcg/0.5 mL SYR (4YR UP) IM ONE (10:00)
--- NOTE | 2017-07-06 11:39 | PCM.PYCHPN ---
Psychiatric Progress Note - Psychiatric Progress Note Patient Chief Complaint: I was feeling depressed and suicidal.' Mental Status Examination - Cognitive Function Orientation: Person, Place, Situation, Time - Mood Mood: Depressed, Anxious - Affect Affect: Constricted, Depressed - Formal Thought Process Formal Thought Process: No Impairment - Homicidal Ideation Homicidal Ideation: No Goal/Treatment Plan - Goal/Treatment Plan Progress Toward Problem(s) and Goals/Treatment Plan: Major depressive disorder recurrent severe without psychotic features CBT Psychoeducation Supportive therapy, group therapy, individual therapy Gabapentin 300 mg PO TID Fluoxetine 20 mg PO Daily Seroquel 100 mg PO QHS Trazodone 50 mg by mouth daily at bedtime Opioid use disorder severe CBT Psychoeducation Supportive therapy, individual therapy Use [place] for abstinence Opioid withdrawal CBT Psychoeducation Supportive therapy, individual therapy Clonidine when necessary Methadone taper
[2017-07-06] MEDS ORDERED: Amoxicillin-Clav 500-125 mg Tab PO SCH (12:30)
[2017-07-06] MEDS: Amoxicillin-Clav 500-125 mg Tab PO SCH (21:29)
[2017-07-07] MEDS: Amoxicillin-Clav 500-125 mg Tab PO SCH ×3 (09:42→22:05)
--- NOTE | 2017-07-07 10:49 | PCM.PYCHPN ---
Psychiatric Progress Note - Psychiatric Progress Note Patient seen today, length of contact: 16 Patient Chief Complaint: "I'm feeling anxious" Problems Identified/Issues Discussed: This patient was seen, chart reviewed, and case discussed with staff. Patient reports that her sleep was okay. Pt states that her appetite is normal. She states that she is no longer experiencing depressed mood and feelings of hopelessness and helplessness. She denies suicidal ideations and homicidal ideations. She denies any auditory or visual hallucination. Patient appears disheveled and has a normal speech pattern. She is cooperative. Pt has been participating in groups and has been interacting with the staff and other patients. Patient is compliant with medications and denies any side effects. Symptoms are improving but need more time to stabilize. Support and psychoeducation given. Medical Record Reviewed: Yes Mental Status Examination - Cognitive Function Orientation: Person, Place, Situation, Time Attention: WNL Concentration: WNL Association: WNL Fund of Knowledge: WNL - Mood Mood: Neutral - Affect Affect: Constricted - Speech Speech: Appropriate - Formal Thought Process Formal Thought Process: No Impairment - Suicidal Ideation Suicidal Ideation: No - Homicidal Ideation Homicidal Ideation: No Goal/Treatment Plan - Goal/Treatment Plan Need for Continued Stay: Discharge may exacerbated symptoms Progress Toward Problem(s) and Goals/Treatment Plan: Major depressive disorder recurrent severe without psychotic features CBT Psychoeducation Supportive therapy, group therapy, individual therapy Gabapentin 300 mg PO TID Fluoxetine 20 mg PO Daily Seroquel 100 mg PO QHS Trazodone 50 mg by mouth daily at bedtime Opioid use disorder severe CBT Psychoeducation Supportive therapy, individual therapy Use [place] for abstinence Opioid withdrawal CBT Psychoeducation Supportive therapy, individual therapy Clonidine when necessary Methadone taper
[2017-07-08 06:49] VITALS: BP 91/47; PULSE 68; RESP 20; TEMP 98
[2017-07-08] MEDS: Amoxicillin-Clav 500-125 mg Tab PO SCH (09:48)
--- NOTE | 2017-07-08 10:15 | PCM.PYCHDC ---
Mental Status Examination - Mental Status Examination Orientation: Person, Place, Situation, Time Memory: Intact Mood: Neutral Affect: Constricted Speech: Soft Attention: WNL Concentration: WNL Association: WNL Fund of Knowledge: WNL Formal Thought Process: No Impairment Description of patient's judgement and insight: good, fair Psychotic Thoughts and Behaviors: Denies any AVH Suicidal Ideation: No Current Homicidal Ideation?: No Discharge Summary - Discharge Note Reason for Hospitalization: Patient is a 27 y/o CF, currently homeless and unemployed came to the ED with depressed mood, opioid abuse and suicidal ideation. As per the ED cjhart:, patient has a long history of using Heroin, and Cocaine. Patient has a history of abusing Xanax, patient denied using Xanax at this time. Patient had two prior admissions for detox at on August 2016 and December 2016. Patient stated that she followed up with recommendations and attended [facility] for 30 days. Patient states that she should had stayed longer in the program. Patient reported feeling suicidal since yesterday. Patient reported that her plan is to overdose with as many substances that she can get. Patient reported injecting 10-20 bags of Heroin and reported using $40 worth of cocaine yesterday. Patient reports depressed mood, feelings of hopelessness and helplessness. She reports poor sleep and poor appetite. She denies any homicidal ideation. She denies any auditory or visual hallucinations or any psychotic or manic symptoms symptoms. She reports anxiety and irritability and reports withdrawal symptoms i.e., sweating, headaches, anxiety, back and joint pains, nausea and abdominal cramps. Consultations:: List each consultation separately and include: 1. Reason for request. 2. Findings. 3. Follow-up Summary of Hospital Course include:: 1. Description of specific treatment plan utilized for patients during their course of treatmen. 2. Summarize the time- course for resolution of acute symptoms and/or regressed behaviors. 3. Describe issues identified and worked on during hospitalization. 4. Describe medication utilized. 5. Describe medical problems identified and treated. 6. Reassessment of suicide risk Summary of Hospital Course: During the course of her stay, patient (pt) started progressively improving and she no longer remained irritable, anxious and depressed. Her mood and anxiety were improved and she started attending groups and meetings and started socializing. Patient denied any feelings of hopelessness, helplessness, and worthlessness, denied any problem with the sleep or appetite, denied suicidal ideation or homicidal ideation. Pt denied any auditory or visual hallucinations. Some changes were made in her current medications and patient was discharged on following medications. She tolerated these medications very well and denied any side effects. She was discharged with a plan to follow-up with [facility] program in [place]. - Diagnosis (1) Moderate major depression, single episode Status: Acute (2) Opioid use disorder, severe, dependence Status: Acute - Final Diagnosis (DSM 5) Condition upon Discharge: STABLE DSM 5: Major depressive disorder recurrent severe without psychotic features Opioid use disorder severe Opioid withdrawal Disposition: HOME/ ROUTINE Follow-up Treatment Plan: Education: Pt was educated and counseled about the risks and benefits of taking and not taking medications. Pt was educated and counseled about the risks of drinking and abusing drugs. Pt was educated and counseled to go to the ER or call 911 if pt develop suicidal ideation or homicidal ideation, worsening of symptoms or severe side effects of the meds. Prescriptions/Medication Reconciliation: Amoxicillin/Clavulanate [Augmentin 500 MG-125 MG Tab] 1 tab PO Q12H 7 Days #7 tab FLUoxetine [Prozac] 20 mg PO DAILY #14 cap Gabapentin [Neurontin] 300 mg PO BID 14 Days #14 cap QUEtiapine [SEROquel] 200 mg PO HS #14 tab - Smoking Cessation Smoking Cessation Medication prescribed: No - Antipsychotic Medications Pt discharged on 2 or more routine antipsychotic medications: No
== END 2017-07-08 11:20 | disposition home or self-care (01) | DRG 885 ==
LOC: C.ER 18:04 → C.9E 19:58 → C.5E 20:18
PROVIDERS: ADMIT Psychiatry & Neurology Psychiatry; ATTEND Psychiatry & Neurology Psychiatry
PROC: GZ3ZZZZ Medication Management (ICD-10-PCS; principal; 2017-07-03)
PROC: HZ59ZZZ Individual Psychotherapy for Substance Abuse Treatment, Supportive (ICD-10-PCS; 2017-07-03)
PROC: GZHZZZZ Group Psychotherapy (ICD-10-PCS; 2017-07-03)
PROC: HZ2ZZZZ Detoxification Services for Substance Abuse Treatment (ICD-10-PCS; 2017-07-03)
PROC: GZ56ZZZ Individual Psychotherapy, Supportive (ICD-10-PCS; 2017-07-03)
PROC: HZ91ZZZ Pharmacotherapy for Substance Abuse Treatment, Methadone Maintenance (ICD-10-PCS; 2017-07-03)
DX: F33.2 Major depressive disorder, recurrent severe without psychotic features (principal); R45.851 Suicidal ideations; F11.23 Opioid dependence with withdrawal; F41.9 Anxiety disorder, unspecified; B18.2 Chronic viral hepatitis C; Z59.0 Homelessness

== ENCOUNTER 2017-09-07 09:53 | Emergency (ER) | payer MEDICAID ==
[2017-09-07 09:54] VITALS: BMI 17.2
[2017-09-07 10:19] VITALS: RESP 14; TEMP 98.5
--- NOTE | 2017-09-07 12:16 | C.PDOC ---
Time Seen by Provider: 09/07/17 11:44 Chief Complaint (Nursing): ENT Problem History Per: Patient Onset/Duration Of Symptoms: Days (few) Current Symptoms Are (Timing): Still Present Quality (Ear): Pain W/Touch, Swelling Quality (Mouth/Throat): Tenderness Severity: Moderate Past Medical History Reviewed: Historical Data, Nursing Documentation, Vital Signs Vital Signs: Last Vital Signs Temp 98.5 F 09/07/17 10:19 Pulse 82 09/07/17 10:19 Resp 14 09/07/17 10:19 BP 112/63 09/07/17 10:19 Pulse Ox 100 09/07/17 10:19 - Medical History PMH: Anxiety, Depression, Hepatitis (C) - [facility] Procedures DETOXIFICATION SERVICES FOR SUBSTANCE ABUSE TREATMENT (07/03/17) GROUP ROAD MARKER FOR SUBSTANCE ABUSE TREATMENT, PSYCHOEDUCATION (08/08/16) GROUP PSYCHOTHERAPY (07/03/17) INDIV PSYCHOTHERAPY FOR SUBSTANCE ABUSE TREATMENT, SUPPORT (07/03/17) INDIV PSYCHOTHERAPY FOR SUBSTANCE ABUSE, COGNITIV BEHAVIORAL (01/23/17) INDIV PSYCHOTHERAPY FOR SUBSTANCE ABUSE, PSYCHOEDUCATION (01/23/17) INDIVIDUAL PSYCHOTHERAPY, SUPPORTIVE (07/03/17) MANUAL REMOVAL-PLACENTA (09/16/13) MEDICATION MANAGEMENT (07/03/17) PHARMACOTHERAPY FOR SUBSTANCE ABUSE, METHADONE MAINT (07/03/17) PHARMACOTHERAPY FOR SUBSTANCE ABUSE, OTH REPLACE MED (08/08/16) Family History: States: Unknown Family Hx - Social History Hx Tobacco Use: Yes Hx Alcohol Use: No Hx Substance Use: Yes - Immunization History Hx Tetanus Toxoid Vaccination: Yes Hx Influenza Vaccination: No Hx Pneumococcal Vaccination: No Review Of Systems Except As Marked, All Systems Reviewed And Found Negative. Constitutional: Negative for: Fever ENT: Positive for: Ear Pain (left), Mouth Pain. Negative for: Ear Discharge Respiratory: Negative for: Cough, Shortness of Breath Gastrointestinal: Negative for: Vomiting, Abdominal Pain Musculoskeletal: Negative for: Neck Pain Neurological: Negative for: Weakness, Numbness, Seizures, Altered Mental Status , Headache Physical Exam - Physical Exam Appears: Non-toxic, No Acute Distress Skin: Warm, Dry Head: Atraumatic Eye(s): bilateral: PERRL, EOMI Ear(s): Left: Other (Normal TM, but canal swelling), Right: Normal Oral Mucosa: Moist, No Drooling, No Trismus Tongue: Normal Appearing Teeth: Caries Throat: Normal Neck: Normal ROM, Supple Lymphatic: Adenopathy (submental) Extremity: Normal ROM Neurological/Psych: Oriented x3, Normal Speech, Normal Motor, Normal Sensation ED Course And Treatment O2 Sat by Pulse Oximetry: 100 Pulse Ox Interpretation: Normal Disposition Counseled Patient/Family Regarding: Diagnosis, Need For Followup, Rx Given - Disposition Referrals: Korey Field MD [Staff Provider] - Disposition: HOME/ ROUTINE Disposition Time: 12:19 Condition: STABLE Additional Instructions: Follow up with your dentist this week. Return to the ER if you develop fever, worsening of symptoms or if you have any other concerns. Prescriptions: Amoxicillin 875 mg PO BID #20 tab Naproxen 375 mg PO BID PRN #20 tablet PRN Reason: Pain, Moderate (4-7) Neomycin/Polymyxin/Hydrocort [Cortisporin Otic Soln] 4 drop AU QID #1 bottle Instructions: Otitis Externa (ED), Dental Caries (ED) - Clinical Impression Clinical Impression: Left otitis externa, Severe dental caries
[2017-09-07 12:27] VITALS: BP 113/66; PULSE 78; O2SAT 97
== END 2017-09-07 12:32 | disposition home or self-care (01) ==
LOC: C.ER 09:53
DX: H60.92 Unspecified otitis externa, left ear (principal); K02.9 Dental caries, unspecified

== ENCOUNTER 2017-09-15 14:08 | Inpatient (IN) | payer MEDICAID ==
[2017-09-15 14:09] VITALS: BMI 17.2
[2017-09-15 16:01] LABS: BASO # 0.1 K/uL (0.0-0.2); BASO % 1.4 % (0.0-2.0); EOS # 0.4 K/uL (0.0-0.7); EOS % 5.1 % (0.0-4.0); HEMOGLOBIN 11.7 g/dL (11.0-16.0); LYMPH # 3.2 K/uL (1.0-4.3); MEAN CELL VOLUME 83.8 fL (81.0-99.0); MEAN CORPUSCULAR HEMOGLOBIN 28.1 pg (27.0-31.0); MEAN CORPUSCULAR HGB CONC 33.5 g/dL (33.0-37.0); MEAN PLATELET VOLUME 7.8 fL (7.2-11.7); MONO # 0.7 K/uL (0.0-0.8); MONO % 9.2 % (0.0-10.0); NEUT # 3.5 K/uL (1.8-7.0); NEUT % 44.3 % (50.0-75.0); NRBC % 0.1 % (0.0-2.0); RBC 4.15 Mil/uL (3.80-5.20); RED CELL DISTRIBUTION WIDTH 15.3 % (11.5-14.5)
[2017-09-15 16:04] LABS: SQUAMOUS EPITHIAL 3 /hpf (0-5); URINE BILIRUBIN NEGATIVE (NEGATIVE); URINE BLOOD NEGATIVE (NEGATIVE); URINE CLARITY Hazy (Clear); URINE COLOR Yellow (YELLOW); URINE GLUCOSE (UA) NORMAL (Normal); URINE LEUKOCYTE ESTERASE NEG Leu/uL (Negative); URINE NITRATE NEGATIVE (NEGATIVE); URINE PROTEIN NEGATIVE (NEGATIVE); URINE UROBILINOGEN NORMAL mg/dL (0.2-1.0)
[2017-09-15 16:07] LABS: HCG,QUALITATIVE URINE NEGATIVE (NEGATIVE)
[2017-09-15 16:15] LABS: ALB/GLOB RATIO 1.1 (1.0-2.1); ALBUMIN 3.6 g/dL (3.5-5.0); ALT/SGPT 20 U/L (9-52); AST/SGOT 22 U/L (14-36); BLOOD UREA NITROGEN 15 mg/dL (7-17); GFR AFRICAN-AMERICAN > 60; GFR NON-AFRICAN AMERICAN > 60
[2017-09-15 16:27] LABS: BARBITURATES, UR NEGATIVE (NEGATIVE); BENZODIAZEPINES, UR NEGATIVE (NEGATIVE); PHENCYCLIDINE, UR NEGATIVE (NEGATIVE)
[2017-09-15 16:31] LABS: OPIATES, UR POSITIVE (NEGATIVE)
--- NOTE | 2017-09-15 16:53 | C.PDOC ---
History Of Present Illness 27 y/o female presents to the ER for detox from heroin, benzos, and cocaine. Patient was prescreened on the phone with the wire web worker. Patient is complaining of generalized body pains, increased salivation, and nausea. Time Seen by Provider: 09/15/17 15:12 Chief Complaint (Nursing): Substance Abuse History Per: Patient History/Exam Limitations: no limitations Onset/Duration Of Symptoms: Days Current Symptoms Are (Timing): Still Present Severity: Moderate Past Medical History Reviewed: Historical Data, Nursing Documentation, Vital Signs Vital Signs: Last Vital Signs Temp 98.4 F 09/15/17 17:59 Pulse 63 09/15/17 17:59 Resp 18 09/15/17 17:59 BP 89/51 L 09/15/17 17:59 Pulse Ox 98 09/15/17 17:59 - Medical History PMH: Anxiety, Depression, Hepatitis (C) Denies: Diabetes, HIV, HTN, Chronic Kidney Disease, Seizures, Sexually Transmitted Disease Surgical History: No Surg Hx - [facility] Procedures DETOXIFICATION SERVICES FOR SUBSTANCE ABUSE TREATMENT (07/03/17) GROUP MATCHBOOK MAKER FOR SUBSTANCE ABUSE TREATMENT, PSYCHOEDUCATION (08/08/16) GROUP PSYCHOTHERAPY (07/03/17) INDIV PSYCHOTHERAPY FOR SUBSTANCE ABUSE TREATMENT, SUPPORT (07/03/17) INDIV PSYCHOTHERAPY FOR SUBSTANCE ABUSE, COGNITIV BEHAVIORAL (01/23/17) INDIV PSYCHOTHERAPY FOR SUBSTANCE ABUSE, PSYCHOEDUCATION (01/23/17) INDIVIDUAL PSYCHOTHERAPY, SUPPORTIVE (07/03/17) MANUAL REMOVAL-PLACENTA (09/16/13) MEDICATION MANAGEMENT (07/03/17) PHARMACOTHERAPY FOR SUBSTANCE ABUSE, METHADONE MAINT (07/03/17) PHARMACOTHERAPY FOR SUBSTANCE ABUSE, OTH REPLACE MED (08/08/16) Family History: States: No Known Family Hx - Social History Hx Tobacco Use: Yes Hx Alcohol Use: No Hx Substance Use: Yes - Immunization History Hx Tetanus Toxoid Vaccination: Yes Hx Influenza Vaccination: Yes Hx Pneumococcal Vaccination: No Review Of Systems Except As Marked, All Systems Reviewed And Found Negative. Constitutional: Positive for: Malaise. Negative for: Fever, Chills Gastrointestinal: Positive for: Nausea Physical Exam - Physical Exam Appears: Other (uncomfortable) Skin: Normal Color, Warm Head: Atraumatic, Normacephalic Eye(s): bilateral: Normal Inspection Nose: Normal Oral Mucosa: Moist Neck: Supple Chest: Symmetrical Cardiovascular: Rhythm Regular Respiratory: Normal Breath Sounds, No Accessory Muscle Use, No Rales, No Rhonchi , No Wheezing Gastrointestinal/Abdominal: Normal Exam, Soft, No Tenderness Extremity: Normal ROM Neurological/Psych: Oriented x3, Normal Speech, Normal Motor, Normal Sensation ED Course And Treatment - Laboratory Results Result Diagrams: 09/15/17 15:55 09/15/17 15:55 O2 Sat by Pulse Oximetry: 99 (RA) Pulse Ox Interpretation: Normal Progress Note: Labs were ordered. Catapres PO was given to patient with mild improvement. Patient is medically cleared for admission to detox and has been accepted by Dr. Cedeno. Disposition - Disposition Disposition: HOSPITALIZED Disposition Time: 16:58 Condition: STABLE - Clinical Impression Clinical Impression: Polysubstance abuse - PA / WARD ATTENDANT / Resident Statement MD/DO has reviewed & agrees with the documentation as recorded. - Scribe Statement The provider has reviewed the documentation as recorded by the Edilmaibraven Stevenson Provider Attestation All medical record entries made by the Scribe were at my direction and personally dictated by me. I have reviewed the chart and agree that the record accurately reflects my personal performance of the history, physical exam, medical decision making, and the department course for this patient. I have also personally directed, reviewed, and agree with the discharge instructions and disposition. Decision To Admit - Pt Status Changed To: Hospital Disposition Of: Inpatient - Admit Certification Admit to Inpatient:: After my assessment, the patient will require hospitalization for at least two midnights. This is because of the severity of symptoms shown, intensity of services needed, and/or the medical risk in this patient being treated as an outpatient. - InPatient: Physician Admission Certification: I certify that this patient requires 2 or more midnights of care for the following reason:: Pt will need more than 2 days for Detox. - . Bed Request Type: Detox Patient Diagnosis: Polysubstance abuse
--- NOTE | 2017-09-15 17:04 | PCM.BM ---
<Sara Leyva - Last Filed: 09/15/17 17:03> Treatment Plan Problems - Problems identified on initial assessmt Potential for opiate withdrawal Date Initiated: 09/15/17 Time Initiated: 17:03 Assessment reference: NA Status: Active Priority: 1 Treatment assets and liabiliti Patient Assests: cooperative, ADL independent, negotiates basic needs, cognitively intact Patient Liabilities: substance abuse (opiates, cocaine) - Milieu Protocol Maintain good personal hygiene: daily Encourage regular showers, daily Remind patient to perform daily oral care, daily Assist patient to perform ADL's Conduct patient checks and document Observation sheet: Q15 minutes Maintain personal safety: every shift Educate patient to report safety concerns to staff, every shift Monitor environment for contraband/sharps Medication safety: Monitor for expected outcome, potential side effects: every shift, Assess barriers to learning: every shift, Assess readiness for medication education: every shift <Alec Cedenonatalia - Last Filed: 09/16/17 11:29> - Diagnosis (1) Benzodiazepine abuse Status: Acute Interventions: 09/16/17 11:28 * Assess 7x/week regarding severity of withdrawal * Educate regarding risks, benefits, side effects and alternatives of medications * Use Motivational Interviewing for abstinence * Use CBT for relapse prevention * Medication management for withdrawal symptoms * Encourage medication assisted treatment * (2) Cocaine use disorder, severe, dependence Status: Acute Interventions: 09/16/17 11:28 * Assess 7x/week regarding severity of withdrawal * Educate regarding risks, benefits, side effects and alternatives of medications * Use Motivational Interviewing for abstinence * Use CBT for relapse prevention * Medication management for withdrawal symptoms * Encourage medication assisted treatment * (3) Opioid use disorder, severe, dependence Status: Acute Interventions: 09/16/17 11:28 * Assess 7x/week regarding severity of withdrawal * Educate regarding risks, benefits, side effects and alternatives of medications * Use Motivational Interviewing for abstinence * Use CBT for relapse prevention * Medication management for withdrawal symptoms * Encourage medication assisted treatment *
[2017-09-15] MEDS ORDERED: Aluminum Hydroxide/Magnesium Hydroxide Susp (30 mL) PO PRN (17:48)
[2017-09-15] MEDS ORDERED: Buprenorphine Hydrochloride 2 mg SL ONE ×2 (17:50→19:00)
[2017-09-16] MEDS ORDERED: Buprenorphine Hydrochloride 8 mg SL ONE (09:00)
--- NOTE | 2017-09-16 09:53 | PCM.PSYCH ---
Initial Psychiatric Evaluation - Initial Psychiatric Evaluation Type of Admission: Voluntary Legal Status: Capacity Chief Complaint (in patient's own words): "I relapsed" History of Present Illness and Precipitating Events: She is seen, chart reviewed case discussed She is known from previous admissions. Patient is a 27 year old female who presents for heroin detox, again. Pt states that she has been injecting 10 bags of heroin a day and she has been using 10- 20 bags for the past 18 years. She also admits to using Xanax 2 mg /day since d/ c from [facility] psych unit. And smoking crack cocaine for the past 7 years. She claims that when she was d/c'ed her BF was [facility] and so she relapsed. However, he is out now and is clean. She wanst to do Suboxone maintenance and IOP. She also reports feeling somewhat depressed and excessive worrying, anxiety, panic attacks. Past Psych History: She was in [facility] in July 2017 for depression and detox. No prabhakar attempt Social History: Pt is currently unemployed but gets her money from her parents Home: Pt lives with a male friend who "does not use" now Alcohol: Denies Tobacco: 1 pack/day for 3 years Legal: Denies Family History: Father 5 years ago from drug/alcohol abuse, mother has history of drug abuse in past, mom's brother from drug/alcohol abuse Medical History: Hep C, negative for HIV in the past Current Medications: Active Medications Generic Name Dose Route Start Last Admin Trade Name Freq PRN Reason Stop Dose Admin Al Hydrox/Mg Hydrox/Simethicone 30 ml 09/15/17 17:48 Maalox 30 Ml PO TID PRN Indigestion / Heartburn Clonidine HCl 0.1 mg 09/15/17 17:48 Catapres PO Q8 PRN COWS Score More or Equal to 5 Gabapentin 300 mg 09/15/17 18:00 09/16/17 09:06 Neurontin PO 300 mg TID ALEKSANDR Administration Hydroxyzine HCl 50 mg 09/15/17 17:55 09/15/17 19:51 Atarax PO 50 mg Q6H PRN Administration Anxiety Ibuprofen 600 mg 09/15/17 17:55 09/15/17 21:10 Motrin Tab PO 600 mg Q6H PRN Administration Pain, moderate (4-7) Loperamide HCl 2 mg 09/15/17 17:48 Imodium PO Q8 PRN Diarrhea Ondansetron HCl 4 mg 09/15/17 17:48 Zofran Tab PO Q8 PRN Nausea/Vomiting Quetiapine Fumarate 200 mg 09/16/17 22:00 Seroquel PO HS ALEKSANDR Past Psychiatric History - Past Psychiatric History Previous Treatment History: Inpatient Pertinent Medical Hx (Current Medical&Sleep Prob, Allergies): Allergies Allergy/AdvReac Type Severity Reaction Status Date / Time No Known Allergies Allergy Verified 09/07/17 10:20 Gabapentin [Neurontin] 900 mg PO TID 01/23/17 FLUoxetine [Prozac] 20 mg PO DAILY #30 cap 01/26/17 Review of Systems - Psychiatric Psychiatric: Abnormal Sleep Pattern, Anhedonia, Anxiety, Depression, Difficulty Concentrating, Irritability. absent: Hallucinations, Homicidal Ideation, Paranoia, Suicidal Ideation Mental Status Examination - Personal Presentation Personal Presentation: Looks stated age - Affect Affect: Constricted - Motor Activity Motor Activity: Calm - Reliability in Providing Information Reliability in Providing Information: Good - Speech Speech: Organized - Mood Mood: Anxious - Formal Thought Process Formal Thought Process: No Impairment - Cognitive Functions Orientation: Person, Place, Situation, Time Sensorium: Alert Attention/Concentration: Attentive Estimate of Intelligence: Average Judgement: Intact, as evidence by: Insight regarding need for hospitalization Memory: Recent intact, as evidence by: Ability to recall events of the day, Remote intact, as evidenced by: Abilit to recall sig. life events - Risk Risk: Withdrawal, Diminished functioning - Strength & Assets Inventory Strength & Assets Inventory: Cooperative - Limitations Limitations: Other DSM 5 DX - DSM 5 DSM 5 Diagnosis: Opioid withdrawal Opioid use d/o - severe Sedative hypnotic use d/o - moderate Cocaine use d/o - severe Major depression - recurrent, moderate ASAEL Panic d/o - w/o agoraphobia Borderline personality d/o - Recommended/Plan of Treatment Treatment Recommendations and Plan of Treatment: Subutex taper Gabapentin for augmentation Seroquel for mood and insomnia As needed medications All risks, benefits and alternatives of the meds discussed, and the pt agreed and understood. Attend groups and activities Supportive therapy and psychoeducation LA for abstinence CBT for relapse prevention Encourage MAT Refer to rehab or IOP, and self-help groups Smoking cessation with LA Nicotine patch if needed 34 min Projected ELOS: 4-5 days Prognosis: good w treatment - Smoking Cessation Smoking Cessation Initiated: Yes
[2017-09-16] MEDS ORDERED: Vitamins A & D Oint UD Foilpak TOP PRN (17:19)
[2017-09-17] MEDS: Buprenorphine Hydrochloride 2 mg SL SCH (09:05)
--- NOTE | 2017-09-17 23:13 | PCM.PYCHPN ---
Psychiatric Progress Note - Psychiatric Progress Note Patient seen today, length of contact: 16 minutes Patient Chief Complaint: "I have anxiety" Problems Identified/Issues Discussed: The pt is seen, chart reviewed, case discussed with staff. Pt has meds seeking behavior. She stated that she has anxiety and medication is not working. Pt asked to increase seroquel and also to start Trazodone for insomnia. The pt is compliant with medications and reports no side-effects. Symptoms are improving but needs more time to stabilize. After care discussed, support and psychoeducation given Medication Change: Yes (increase buspar) Medical Record Reviewed: Yes Mental Status Examination - Cognitive Function Orientation: Person, Place, Situation, Time Memory: Intact Attention: WNL Concentration: WNL Association: WNL Fund of Knowledge: [facility] Decription of patient's judgement and insights: limited/limited - Mood Mood: Anxious - Affect Affect: Constricted - Speech Speech: Appropriate - Formal Thought Process Formal Thought Process: No Impairment Psychotic Thoughts and Behaviors: denied - Suicidal Ideation Suicidal Ideation: No Plan: denied - Homicidal Ideation Homicidal Ideation: No Plan: denied Goal/Treatment Plan - Goal/Treatment Plan Need for Continued Stay: Discharge may exacerbated symptoms Progress Toward Problem(s) and Goals/Treatment Plan: continue current meds except increase Buspar for anxiety. Psychoeducation provided. Therapy in milieu Estimated Date of D/C: 09/20/17 - Smoking Cessation Smoking Cessation Initiated: Yes
[2017-09-18] MEDS: Buprenorphine Hydrochloride 2 mg SL SCH (10:02)
[2017-09-19] MEDS: Buprenorphine Hydrochloride 2 mg SL SCH (09:26)
--- NOTE | 2017-09-19 10:55 | PCM.PYCHPN ---
Psychiatric Progress Note - Psychiatric Progress Note Patient seen today, length of contact: 16 minutes Patient Chief Complaint: I am feeling little better Problems Identified/Issues Discussed: Patient seen and evaluated, chart reviewed and discussed with the nurse. Patient still reports some withdrawal symptoms including headaches and sweating. She reports irritable mood but denies any feelings of hopelessness and helplessness. She denies any SI/HI/AVH. She is taking medication and denies any side effects. She needs more time for stabilization. Supportive therapy and psychoeducation were given. Medication Change: Yes (increase buspar) Medical Record Reviewed: Yes Mental Status Examination - Cognitive Function Orientation: Person, Place, Situation, Time Memory: Intact Attention: WNL Concentration: WNL Association: WNL Fund of Knowledge: Poor - Mood Mood: Anxious - Affect Affect: Constricted - Speech Speech: Appropriate - Formal Thought Process Formal Thought Process: No Impairment - Suicidal Ideation Suicidal Ideation: No - Homicidal Ideation Homicidal Ideation: No Goal/Treatment Plan - Goal/Treatment Plan Need for Continued Stay: Discharge may exacerbated symptoms Progress Toward Problem(s) and Goals/Treatment Plan: Opioid withdrawal Opioid use d/o - severe Sedative hypnotic use d/o - moderate Cocaine use d/o - severe Major depression - recurrent, moderate ASAEL Panic d/o - w/o agoraphobia Borderline personality d/o Subutex taper Gabapentin for augmentation Seroquel for mood and insomnia As needed medications All risks, benefits and alternatives of the meds discussed, and the pt agreed and understood. Attend groups and activities Supportive therapy and psychoeducation MO for abstinence CBT for relapse prevention Encourage MAT Refer to rehab or IOP, and self-help groups Smoking cessation with MO Nicotine patch if needed Estimated Date of D/C: 09/20/17 - Smoking Cessation Smoking Cessation Initiated: No
[2017-09-19 20:31] VITALS: RESP 18
--- NOTE | 2017-09-20 08:52 | PCM.PYCHDC ---
Mental Status Examination - Mental Status Examination Orientation: Person Discharge Summary - Discharge Note Consultations:: List each consultation separately and include: 1. Reason for request. 2. Findings. 3. Follow-up Summary of Hospital Course include:: 1. Description of specific treatment plan utilized for patients during their course of treatmen. 2. Summarize the time- course for resolution of acute symptoms and/or regressed behaviors. 3. Describe issues identified and worked on during hospitalization. 4. Describe medication utilized. 5. Describe medical problems identified and treated. 6. Reassessment of suicide risk Summary of Hospital Course: She is seen, chart reviewed case discussed She is known from previous admissions. Patient is a 27 year old female who presents for heroin detox, again. Pt states that she has been injecting 10 bags of heroin a day and she has been using 10- 20 bags for the past 18 years. She also admits to using Xanax 2 mg /day since d/ c from [facility] psych unit. And smoking crack cocaine for the past 7 years. She claims that when she was d/c'ed her BF was in [facility] and so she relapsed. However, he is out now and is clean. She wanst to do Suboxone maintenance and IOP. She also reports feeling somewhat depressed and excessive worrying, anxiety, panic attacks. Past Psych History: She was in [facility] in July 2017 for depression and detox. No prabhakar attempt Social History: Pt is currently unemployed but gets her money from her parents Home: Pt lives with a male friend who "does not use" now Alcohol: Denies Tobacco: 1 pack/day for 3 years Legal: Denies Family History: Father 5 years ago from drug/alcohol abuse, mother has history of drug abuse in past, mom's brother from drug/alcohol abuse Medical History: Hep C, negative for HIV in the past - Diagnosis (1) Benzodiazepine abuse Current Visit: No Status: Acute (2) Cocaine use disorder, severe, dependence Current Visit: No Status: Acute (3) Opioid use disorder, severe, dependence Current Visit: No Status: Acute - Final Diagnosis (DSM 5) Condition upon Discharge: STABLE Disposition: HOME/ ROUTINE Follow-up Treatment Plan: Subutex taper Gabapentin for augmentation Seroquel for mood and insomnia As needed medications All risks, benefits and alternatives of the meds discussed, and the pt agreed and understood. Attend groups and activities Supportive therapy and psychoeducation MO for abstinence CBT for relapse prevention Encourage MAT Refer to rehab or IOP, and self-help groups Smoking cessation with MO Nicotine patch if needed 34 min Prescriptions/Medication Reconciliation: busPIRone [Buspar] 10 mg PO BID #60 tab FLUoxetine [Prozac] 20 mg PO DAILY #30 cap Gabapentin [Neurontin] 400 mg PO TID #90 cap hydrOXYzine HCl [Atarax] 50 mg PO BID PRN #30 tab PRN Reason: Anxiety QUEtiapine [SEROquel] 200 mg PO HS #30 tab
[2017-09-20] MEDS: Buprenorphine Hydrochloride 2 mg SL SCH (09:11)
[2017-09-20 14:35] VITALS: BP 102/60; PULSE 72; TEMP 98; O2SAT 99
== END 2017-09-20 13:45 | disposition home or self-care (01) | DRG 745 ==
LOC: C.ER 14:08 → C.7D 16:53
PROVIDERS: ADMIT Psychiatry & Neurology Psychiatry; ATTEND Psychiatry & Neurology Psychiatry
DX: F11.23 Opioid dependence with withdrawal (principal); F14.20 Cocaine dependence, uncomplicated; F13.10 Sedative, hypnotic or anxiolytic abuse, uncomplicated; F32.9 Major depressive disorder, single episode, unspecified; F41.0 Panic disorder [episodic paroxysmal anxiety]; G47.00 Insomnia, unspecified; F60.3 Borderline personality disorder; Z87.891 Personal history of nicotine dependence

== ENCOUNTER 2017-12-31 00:19 | Inpatient (IN) | payer MEDICAID ==
[2017-12-31 00:20] VITALS: BMI 17.2
[2017-12-31 00:50] VITALS: O2SAT 98
[2017-12-31 01:36] LABS: SQUAMOUS EPITHIAL 2 /hpf (0-5); URINE BILIRUBIN NEGATIVE (NEGATIVE); URINE BLOOD NEGATIVE (NEGATIVE); URINE CLARITY Hazy (Clear); URINE COLOR Yellow (YELLOW); URINE GLUCOSE (UA) NORMAL (Normal); URINE LEUKOCYTE ESTERASE NEG Leu/uL (Negative); URINE PROTEIN 1+ mg/dL (NEGATIVE)
[2017-12-31 01:37] LABS: HCG,QUALITATIVE URINE NEGATIVE (NEGATIVE)
[2017-12-31 01:40] LABS: BASO # 0.1 K/uL (0.0-0.2); EOS # 0.2 K/uL (0.0-0.7); EOS % 3.2 % (0.0-4.0); HEMOGLOBIN 11.6 g/dL (11.0-16.0); LYMPH # 2.3 K/uL (1.0-4.3); LYMPH % 32.3 % (20.0-40.0); MEAN CELL VOLUME 84.6 fL (81.0-99.0); MEAN CORPUSCULAR HEMOGLOBIN 28.7 pg (27.0-31.0); MEAN CORPUSCULAR HGB CONC 33.9 g/dL (33.0-37.0); MEAN PLATELET VOLUME 7.4 fL (7.2-11.7); MONO # 0.7 K/uL (0.0-0.8); NEUT % 54.5 % (50.0-75.0); RBC 4.03 Mil/uL (3.80-5.20); RED CELL DISTRIBUTION WIDTH 14.5 % (11.5-14.5); WHITE BLOOD COUNT 7.3 K/uL (4.8-10.8)
[2017-12-31] MEDS ORDERED: Piperacillin/Tazobact 3.375 GM in Sodium Chloride 100 ML IVPB STA (01:40)
[2017-12-31 01:46] LABS: BARBITURATES, UR NEGATIVE (NEGATIVE); BENZODIAZEPINES, UR NEGATIVE (NEGATIVE); PHENCYCLIDINE, UR NEGATIVE (NEGATIVE)
[2017-12-31 01:47] LABS: OPIATES, UR POSITIVE (NEGATIVE)
[2017-12-31 01:50] LABS: ALB/GLOB RATIO 1.1 (1.0-2.1); ALT/SGPT 12 U/L (9-52); AST/SGOT 19 U/L (14-36); BLOOD UREA NITROGEN 13 mg/dL (7-17); CALCIUM 8.9 mg/dl (8.6-10.4); GFR AFRICAN-AMERICAN > 60; GFR NON-AFRICAN AMERICAN > 60
[2017-12-31] MEDS ORDERED: Vancomycin 1 GM in Sodium Chloride 0.9% 200 ML IVPB STA (02:06)
[2017-12-31] MEDS ORDERED: Vancomycin 500mg/D5W 100 ml 0 MG/0 ML BAG IVPB ONE (02:06)
[2017-12-31] MEDS ORDERED: Piperacillin/Tazobact 3.375 gm 100 ML IVPB ONE (02:09)
--- NOTE | 2017-12-31 02:37 | C.PDOC ---
History Of Present Illness 27 year old female, hx of polysubstance abuse, IVDA, presents to the emergency department requesting a psychiatric evaluation for depression and suicidal ideation. Patient sts, " I dont want to leave anymore, cant use drugs anymore". Patient is also complaining of chronic skin changes " multiple abscesses on my skin". Otherwise, pt denies having suicidal plan, hallucination, last dose of drugs- early today. Pt denies any other active physical complaints: fever, chills, wound discharge, throat pain, CP, SOB, dyspnea, diaphoresis, palpitation , abd. pain, /V/D, UTI sx. Ambulate to ED for evaluation, appears comfortable, appropriate, not in any apparent distress. Time Seen by Provider: 12/31/17 00:29 Chief Complaint (Nursing): Psychiatric Evaluation History Per: Patient History/Exam Limitations: no limitations Onset/Duration Of Symptoms: Hrs Current Symptoms Are (Timing): Still Present Quality Of Symptoms: Other (abscess) Past Medical History Reviewed: Historical Data, Nursing Documentation, Vital Signs Vital Signs: Last Vital Signs Temp 98.6 F 12/31/17 00:46 Pulse 78 12/31/17 00:46 Resp 16 12/31/17 00:46 BP 106/65 12/31/17 00:46 Pulse Ox 98 12/31/17 03:35 - Medical History PMH: Anxiety, Depression, Hepatitis (C) Denies: Diabetes, HIV, HTN, Chronic Kidney Disease, Seizures, Sexually Transmitted Disease Surgical History: No Surg Hx - [facility] DETOXIFICATION SERVICES FOR SUBSTANCE ABUSE TREATMENT (07/03/17) GROUP PATROL MOTHER FOR SUBSTANCE ABUSE TREATMENT, PSYCHOEDUCATION (08/08/16) GROUP PSYCHOTHERAPY (07/03/17) INDIV PSYCHOTHERAPY FOR SUBSTANCE ABUSE TREATMENT, SUPPORT (07/03/17) INDIV PSYCHOTHERAPY FOR SUBSTANCE ABUSE, COGNITIV BEHAVIORAL (01/23/17) INDIV PSYCHOTHERAPY FOR SUBSTANCE ABUSE, PSYCHOEDUCATION (01/23/17) INDIVIDUAL PSYCHOTHERAPY, SUPPORTIVE (07/03/17) MANUAL REMOVAL-PLACENTA (09/16/13) MEDICATION MANAGEMENT (07/03/17) PHARMACOTHERAPY FOR SUBSTANCE ABUSE, METHADONE MAINT (07/03/17) PHARMACOTHERAPY FOR SUBSTANCE ABUSE, OTH REPLACE MED (08/08/16) Family History: States: Unknown Family Hx - Social History Hx Tobacco Use: Yes Hx Alcohol Use: No Hx Substance Use: Yes - Immunization History Hx Tetanus Toxoid Vaccination: Yes Hx Influenza Vaccination: Yes Hx Pneumococcal Vaccination: No Review Of Systems Except As Marked, All Systems Reviewed And Found Negative. Constitutional: Negative for: Fever, Chills ENT: Negative for: Throat Pain Cardiovascular: Negative for: Chest Pain, Palpitations Respiratory: Negative for: Cough, Shortness of Breath, Wheezing Gastrointestinal: Negative for: Nausea, Vomiting, Abdominal Pain, Diarrhea Musculoskeletal: Negative for: Neck Pain, Back Pain Skin: Positive for: Lesions, Other (abscesses, no discharge) Neurological: Negative for: Weakness, Numbness, Altered Mental Status, Headache , Dizziness Psych: Positive for: Depression, Suicidal ideation. Negative for: Other ( hallucinations) Physical Exam - Physical Exam Appears: Well, Non-toxic, No Acute Distress Skin: Warm, Dry, Other (multiple slitly tender nodules to the bilateral lower and upper extremities. No cellulitis, no fluctuance) Head: Normacephalic Eye(s): bilateral: PERRL Nose: No Flaring Oral Mucosa: Moist, No Drooling Tongue: Normal Appearing Lips: Normal Appearing Throat: No Drooling Neck: Trachea Midline, No Midline Cervical Tenderness, No Paracervical Tenderness, Supple Chest: Symmetrical, No Deformity, No Tenderness Cardiovascular: Rhythm Regular, No Friction Rub, No Murmur, No JVD Respiratory: No Decreased Breath Sounds, No Accessory Muscle Use, No Rales, No Rhonchi, No Wheezing Gastrointestinal/Abdominal: Soft, No Tenderness, No Distention, No Guarding, No Rebound Back: No CVA Tenderness Extremity: Normal ROM, No Deformity, No Swelling Neurological/Psych: Oriented x3, Normal Speech ED Course And Treatment - Laboratory Results Result Diagrams: 12/31/17 01:34 18 01:34 Lab Interpretation: Normal O2 Sat by Pulse Oximetry: 98 (RA) Pulse Ox Interpretation: Normal Progress Note: Plan: Alcohol Serum. CMP. Drug Screen. CBC. Vancomycin 1gm. Zosyn 100ml IVPB. AES Crisis Eval. HCG, Qualitative Urine. At 2:40, pt in medically cleared for PES evaluation. Pt was OBS in ED for 3 hours and remained stable. Afebrile, hemodynamicaly stable. NOn-toxic. neurologicaly intact. Skin: chronic skin changes, multiple nodules to B/L UEs an cxLEs. no cellulitis or flactulance. Pt was evaluated by PES and case discussed with [id number] and admission to psych floor arranged with Dx: DEpression , suicidal ideation, polysubstance dependance. Blood work review and appears without acute abnoramlities, at baseline. Disposition - Disposition Disposition: HOSPITALIZED Disposition Time: 03:10 Condition: STABLE Forms: [facility] (Guatemalan) - Clinical Impression Clinical Impression: Cocaine use disorder, severe, dependence, Suicidal ideation, Moderate major depression, single episode - PA / WORKERS' COMPENSATION HEARINGS OFFICER / Resident Statement MD/DO has reviewed & agrees with the documentation as recorded. - Scribe Statement The provider has reviewed the documentation as recorded by the Scribe (Eliseo Kessler) All medical record entries made by the Scribe were at my direction and personally dictated by me. I have reviewed the chart and agree that the record accurately reflects my personal performance of the history, physical exam, medical decision making, and the department course for this patient. I have also personally directed, reviewed, and agree with the discharge instructions and disposition.
--- NOTE | 2017-12-31 04:04 | PCM.BM ---
<Sanjuanita Gore - Last Filed: 12/31/17 04:02> Treatment Plan Problems - Problems identified on initial assessmt Suicidal ideation Date Initiated: 12/31/17 Time Initiated: 04:05 Assessment reference: NA Status: Active Treatment assets and liabiliti Patient Assests: cooperative, ADL independent, negotiates basic needs, cognitively intact Patient Liabilities: substance abuse - Milieu Protocol Maintain good personal hygiene: daily Encourage regular showers, daily Remind patient to perform daily oral care, daily Assist patient to perform ADL's Maintain personal safety: every shift Educate patient to report safety concerns to staff, every shift Monitor environment for contraband/sharps Medication safety: Monitor for expected outcome, potential side effects: every shift, Assess barriers to learning: every shift, Assess readiness for medication education: every shift <Erin Mccarthy - Last Filed: 01/02/18 11:26> - Diagnosis (1) Bipolar disorder, curr episode mixed, severe, w/o psychotic features Status: Acute Interventions: 01/02/18 11:26 * Assess/adjust medications daily and /or as needed * See patient on an individual basis 7x/week to assess level of manic behaviors and stability * Discuss risks, benefits, side effects and alternatives of medications * (2) Opioid use disorder, severe, dependence Status: Acute Interventions: 01/02/18 11:26 * Assess 7x/week regarding severity of withdrawal * Educate regarding risks, benefits, side effects and alternatives of medications * Use Motivational Interviewing for abstinence * Use CBT for relapse prevention * Medication management for withdrawal symptoms * Encourage medication assisted treatment * <Aranza Vanegas - Last Filed: 01/02/18 16:21> Family Contact Family involvement: Patient does not wish Family/SO involvement Family contact: Patient declines to allow family contact at present - Goals for Treatment Patient goals for treatment: "I want to go to a rehab program." Discharge/Continuing Care - Education Needs Education Needs: Patient Medication, Patient Diagnosis/Disease Process, Patient Coping Skills, Patient Placement options, Patient Community resources - Discharge Discharge Criteria: Free of Suicidal thoughts, Normal sleep pattern, Ability to care for self, No longer exhibiting s/s of withdrawal, Reduction of target symptoms Discharge to:: Substance Abuse Rehab - Treatment Team Participation Discussed with Family/SO: No Was Patient/Family/SO present at Treatment Team Meeting: Yes
[2017-12-31] MEDS ORDERED: Pneumococcal 23-Valent Vaccine IM ONE (06:12)
--- NOTE | 2017-12-31 12:30 | PCM.PSYCH ---
Initial Psychiatric Evaluation - Initial Psychiatric Evaluation Type of Admission: Voluntary Legal Status: Capacity Chief Complaint (in patient's own words): I was feeling depressed and suicidal.' History of Present Illness and Precipitating Events: Pt is a 27 year old single CF, who lives with her boyfriend and currently unemployed, came to the ED with depression and suicidal thoughts no plan. Patient has a long history of bipolar disorder. She has been hospitalized multiple times in psych as well as detox. She was last admitted onto to [facility] in July 2017 for depression and heroin detox and most recently on detox 09/15- 09/20/17 for heroin use. Pt reports she is under the care of her PCP Dr. Neymar Posey and is being prescribed prozac 20mg po daily, neurontin 400mg po tid and seroquel 200mg po hs. Pt reports being compliant with her psychotropic medication. Pt denies compliance with outpt psychiatrist. She reports that she relapsed on heroin and cocaine as well as she finished her detox. She reports using 3-10 bags of heroin along with cocaine daily. Pt reports she has been feeling suicidal for the past 2 weeks with the precipitating factor being her drug use of heroin and cocaine. Pt reports if she is discharged she will overdose on heroin and cocaine. Pt states she last used heroin and cocaine yesterday. Pt also reports abusing xanax as well with last use on 12/30/17. Pt has some visible abraisons on face and arms. Pt reports family hx of heroin use. Pt reports depressed mood and reports feelings of hopelessness and helplessness. She also reports poor sleep and poor appetite. She reports sometimes irritability and agitation but denies any auditory or visual hallucinations or any paranoia. She also reports withdrawal symptoms including cramps, back pain, nausea , anxiety and sweating. PMH: None reported Current Medications: Active Medications Generic Name Dose Route Start Last Admin Trade Name Freq PRN Reason Stop Dose Admin Pneumococcal Polyvalent Vaccine 0.5 ml 01/02/18 10:00 Pneumovax 23 Vaccine IM 01/02/18 10:01 .ONCE ONE Past Psychiatric History - Past Psychiatric History Previous Treatment History: Inpatient Pertinent Medical Hx (Current Medical&Sleep Prob, Allergies): Allergies Allergy/AdvReac Type Severity Reaction Status Date / Time No Known Allergies Allergy Verified 12/31/17 00:50 Gabapentin [Neurontin] 900 mg PO TID 01/23/17 FLUoxetine [Prozac] 20 mg PO DAILY #30 cap 01/26/17 FLUoxetine [Prozac] 20 mg PO DAILY #30 cap 09/20/17 Gabapentin [Neurontin] 400 mg PO TID #90 cap 09/20/17 QUEtiapine [SEROquel] 200 mg PO HS #30 tab 09/20/17 busPIRone [Buspar] 10 mg PO BID #60 tab 09/20/17 hydrOXYzine HCl [Atarax] 50 mg PO BID PRN #30 tab 09/20/17 Review of Systems - Review of Systems All systems: reviewed and no additional remarkable complaints except - Psychiatric Psychiatric: Anxiety, Irritability, Suicidal Ideation Mental Status Examination - Personal Presentation Personal Presentation: Looks stated age - Affect Affect: Constricted, Depressed - Motor Activity Motor Activity: Psychomotor Agitation - Reliability in Providing Information Reliability in Providing Information: Fair - Speech Speech: Organized - Mood Mood: Depressed, Anxious - Formal Thought Process Formal Thought Process: No Impairment - Obsessions/Compulsions Obsessions: No Compulsions: No - Cognitive Functions Orientation: Person, Place, Situation, Time Sensorium: Alert Attention/Concentration: Attentive Abstract Thinking: Prosser Estimate of Intelligence: Below average Judgement: Imparied, as evidence by: Poor judgement, Imparied, as evidence by: Lack of insight into illness - Risk Risk: Suicidal, Withdrawal, Diminished functioning - Limitations Limitations: Living alone DSM 5 DX - DSM 5 DSM 5 Diagnosis: Bipolar disorder depressed severe without psychotic features Opioid use disorder severe Opioid withdrawal Cocaine use disorder severe - Recommended/Plan of Treatment Treatment Recommendations and Plan of Treatment: Bipolar disorder depressed severe without psychotic features CBT Psychoeducation Supportive therapy, group therapy, individual therapy Seroquel 200 mg PO QHS Gabapentin 300 mg po TID Fluoxetine 20 mg PO Daily Opioid use disorder severe CBT Psychoeducation Supportive therapy, individual therapy Use [place] for abstinence Opioid withdrawal CBT Psychoeducation Supportive therapy, individual therapy Clonidine when necessary Methadone taper Cocaine use disorder severe Monitor signs and symptoms Use [place] for abstinence
--- NOTE | 2018-01-01 13:46 | PCM.PYCHPN ---
Psychiatric Progress Note - Psychiatric Progress Note Patient seen today, length of contact: 15 min Patient Chief Complaint: I am feeling anxious Problems Identified/Issues Discussed: Patient seen and evaluated, chart reviewed and discussed with the nurse. Patient reports irritability and agitation. She remained isolated and withdrawn. She still reports withdrawal symptoms including shakes, anxiety, headaches and sweating. She denies any auditory hallucinations and persecutory delusions. She is taking medication and denies any side effects. Symptoms are improving but she needs more time for stabilization. Supportive therapy and psychoeducation were given. Medication Change: Yes (methadone taper) Medical Record Reviewed: Yes Mental Status Examination - Cognitive Function Orientation: Person, Place, Situation, Time Memory: Intact Attention: WNL Concentration: Poor Association: WNL Fund of Knowledge: Poor - Mood Mood: Depressed, Anxious - Affect Affect: Constricted - Speech Speech: Appropriate - Formal Thought Process Formal Thought Process: No Impairment - Suicidal Ideation Suicidal Ideation: No - Homicidal Ideation Homicidal Ideation: No Goal/Treatment Plan - Goal/Treatment Plan Need for Continued Stay: Severe depression anxiety, Severe functional impairment Progress Toward Problem(s) and Goals/Treatment Plan: Bipolar disorder depressed severe without psychotic features CBT Psychoeducation Supportive therapy, group therapy, individual therapy Depakote 250 mg by mouth twice a day Seroquel 200 mg PO QHS Gabapentin 300 mg po TID Fluoxetine 20 mg PO Daily Opioid use disorder severe CBT Psychoeducation Supportive therapy, individual therapy Use [place] for abstinence Opioid withdrawal CBT Psychoeducation Supportive therapy, individual therapy Clonidine when necessary Methadone taper Cocaine use disorder severe Monitor signs and symptoms Use [place] for abstinence - Smoking Cessation Smoking Cessation Initiated: No
[2018-01-01] MEDS: Divalproex 250 mg DR Tab PO SCH (17:04)
[2018-01-02] MEDS: Divalproex 250 mg DR Tab PO SCH ×2 (09:58→17:18)
[2018-01-02] MEDS ORDERED: Pneumococcal 23-Valent Vaccine IM ONE (10:00)
--- NOTE | 2018-01-02 11:27 | PCM.PYCHPN ---
Psychiatric Progress Note - Psychiatric Progress Note Patient seen today, length of contact: 15 min Patient Chief Complaint: I am feeling anxious Problems Identified/Issues Discussed: Patient seen and evaluated, chart reviewed and discussed with the nurse. Patient reports irritability and agitation. She remained isolated and withdrawn. She still reports withdrawal symptoms including shakes, anxiety, headaches and sweating. She denies any auditory hallucinations and persecutory delusions. She is taking medication and denies any side effects. Symptoms are improving but she needs more time for stabilization. Supportive therapy and psychoeducation were given. Medication Change: Yes (methadone taper) Medical Record Reviewed: Yes Mental Status Examination - Cognitive Function Orientation: Person, Place, Situation, Time Memory: Intact Attention: WNL Concentration: Poor Association: WNL Fund of Knowledge: Poor - Mood Mood: Depressed, Anxious - Affect Affect: Constricted - Speech Speech: Appropriate - Formal Thought Process Formal Thought Process: No Impairment - Suicidal Ideation Suicidal Ideation: No - Homicidal Ideation Homicidal Ideation: No Goal/Treatment Plan - Goal/Treatment Plan Need for Continued Stay: Severe depression anxiety, Severe functional impairment Progress Toward Problem(s) and Goals/Treatment Plan: Bipolar disorder depressed severe without psychotic features CBT Psychoeducation Supportive therapy, group therapy, individual therapy Depakote 250 mg by mouth twice a day Seroquel 200 mg PO QHS Gabapentin 300 mg po TID Fluoxetine 20 mg PO Daily Opioid use disorder severe CBT Psychoeducation Supportive therapy, individual therapy Use [place] for abstinence Opioid withdrawal CBT Psychoeducation Supportive therapy, individual therapy Clonidine when necessary Methadone taper Cocaine use disorder severe Monitor signs and symptoms Use [place] for abstinence
[2018-01-03] MEDS: Divalproex 250 mg DR Tab PO SCH ×2 (09:40→17:16)
--- NOTE | 2018-01-03 10:20 | PCM.PYCHPN ---
Psychiatric Progress Note - Psychiatric Progress Note Patient seen today, length of contact: 15 min Patient Chief Complaint: I am feeling little better.' Problems Identified/Issues Discussed: Patient seen and evaluated, chart reviewed and discussed with the nurse. Patient reports some improvement in her irritability and agitation. She still reports withdrawal symptoms including shakes, anxiety, headaches and sweating. She denies any auditory hallucinations and persecutory delusions. She is taking medication and denies any side effects. Symptoms are improving but she needs more time for stabilization. Supportive therapy and psychoeducation were given. Medication Change: Yes (methadone taper) Medical Record Reviewed: Yes Mental Status Examination - Cognitive Function Orientation: Person, Place, Situation, Time Memory: Intact Attention: WNL Concentration: Poor Association: WNL Fund of Knowledge: Poor - Mood Mood: Depressed, Anxious - Affect Affect: Constricted - Speech Speech: Appropriate - Formal Thought Process Formal Thought Process: No Impairment - Suicidal Ideation Suicidal Ideation: No - Homicidal Ideation Homicidal Ideation: No Goal/Treatment Plan - Goal/Treatment Plan Need for Continued Stay: Severe depression anxiety, Severe functional impairment Progress Toward Problem(s) and Goals/Treatment Plan: Bipolar disorder depressed severe without psychotic features CBT Psychoeducation Supportive therapy, group therapy, individual therapy Depakote 250 mg by mouth twice a day Seroquel 200 mg PO QHS Gabapentin 300 mg po TID Fluoxetine 20 mg PO Daily Opioid use disorder severe CBT Psychoeducation Supportive therapy, individual therapy Use [place] for abstinence Opioid withdrawal CBT Psychoeducation Supportive therapy, individual therapy Clonidine when necessary Methadone taper Cocaine use disorder severe Monitor signs and symptoms Use [place] for abstinence
[2018-01-03] MEDS: Aluminum Hydroxide/Magnesium Hydroxide Susp (30 mL) PO PRN (11:19)
[2018-01-04] MEDS: Divalproex 250 mg DR Tab PO SCH (10:02)
[2018-01-04] MEDS: Divalproex 500 mg DR Tab PO SCH (17:13)
[2018-01-05 06:21] VITALS: RESP 20
--- NOTE | 2018-01-05 09:06 | RAD ---
Chest x-ray two views History: Discharge instructions. Comparison: 12/10/2014 Findings: No focal infiltrate or effusion. Bibasilar breast and nipple shadows. Heart size within normal limits. Impression: No focal infiltrate or effusion.
--- NOTE | 2018-01-05 10:04 | PCM.PYCHPN ---
Psychiatric Progress Note - Psychiatric Progress Note Patient seen today, length of contact: 15 min Patient Chief Complaint: I was feeling depressed and suicidal.' Problems Identified/Issues Discussed: Patient seen and evaluated, chart reviewed and discussed with the nurse. She wants to go to the inpt rehab. Patient reports some improvement in her irritability and agitation. She still reports withdrawal symptoms including shakes, anxiety, headaches and sweating. She denies any auditory hallucinations and persecutory delusions. She is taking medication and denies any side effects. Symptoms are improving but she needs more time for stabilization. Supportive therapy and psychoeducation were given. Medication Change: Yes (d/c neurontin, increase depakote) Medical Record Reviewed: Yes Mental Status Examination - Cognitive Function Orientation: Person, Place, Situation, Time Memory: Intact Attention: WNL Concentration: Poor Association: WNL Fund of Knowledge: Poor - Mood Mood: Depressed, Anxious - Affect Affect: Constricted, Depressed - Speech Speech: Appropriate - Formal Thought Process Formal Thought Process: No Impairment - Suicidal Ideation Suicidal Ideation: No - Homicidal Ideation Homicidal Ideation: No Goal/Treatment Plan - Goal/Treatment Plan Need for Continued Stay: Severe depression anxiety, Severe functional impairment Progress Toward Problem(s) and Goals/Treatment Plan: Bipolar disorder depressed severe without psychotic features CBT Psychoeducation Supportive therapy, group therapy, individual therapy Seroquel 200 mg PO QHS D/C Gabapentin 300 mg po TID Fluoxetine 20 mg PO Daily Depakote DR 500 mg BID Opioid use disorder severe CBT Psychoeducation Supportive therapy, individual therapy Use [place] for abstinence Opioid withdrawal CBT Psychoeducation Supportive therapy, individual therapy Clonidine when necessary Methadone taper Cocaine use disorder severe Monitor signs and symptoms Use [place] for abstinence
[2018-01-05] MEDS: Divalproex 500 mg DR Tab PO SCH ×2 (10:19→18:56)
[2018-01-05] MEDS: Aluminum Hydroxide/Magnesium Hydroxide Susp (30 mL) PO PRN (23:49)
[2018-01-06 06:23] VITALS: BP 107/64; PULSE 52; TEMP 98.3
--- NOTE | 2018-01-06 09:45 | PCM.PYCHDC ---
Mental Status Examination - Mental Status Examination Orientation: Person, Place, Situation, Time Memory: Intact Mood: Neutral Affect: Constricted Speech: Soft Attention: WNL Concentration: WNL Association: WNL Fund of Knowledge: WNL Formal Thought Process: No Impairment Description of patient's judgement and insight: good, fair Psychotic Thoughts and Behaviors: denies any AVH Suicidal Ideation: No Current Homicidal Ideation?: No Discharge Summary - Discharge Note Reason for Hospitalization: Pt is a 27 year old single CF, who lives with her boyfriend and currently unemployed, came to the ED with depression and suicidal thoughts no plan. Patient has a long history of bipolar disorder. She has been hospitalized multiple times in psych as well as detox. She was last admitted onto to [facility] in July 2017 for depression and heroin detox and most recently on detox 09/15- 09/20/17 for heroin use. Pt reports she is under the care of her PCP Dr. Neymar Posey and is being prescribed prozac 20mg po daily, neurontin 400mg po tid and seroquel 200mg po hs. Pt reports being compliant with her psychotropic medication. Pt denies compliance with outpt psychiatrist. She reports that she relapsed on heroin and cocaine as well as she finished her detox. She reports using 3-10 bags of heroin along with cocaine daily. Pt reports she has been feeling suicidal for the past 2 weeks with the precipitating factor being her drug use of heroin and cocaine. Pt reports if she is discharged she will overdose on heroin and cocaine. Pt states she last used heroin and cocaine yesterday. Pt also reports abusing xanax as well with last use on 12/30/17. Pt has some visible abraisons on face and arms. Pt reports family hx of heroin use. Pt reports depressed mood and reports feelings of hopelessness and helplessness. She also reports poor sleep and poor appetite. She reports sometimes irritability and agitation but denies any auditory or visual hallucinations or any paranoia. She also reports withdrawal symptoms including cramps, back pain, nausea , anxiety and sweating. Consultations:: List each consultation separately and include: 1. Reason for request. 2. Findings. 3. Follow-up Summary of Hospital Course include:: 1. Description of specific treatment plan utilized for patients during their course of treatmen. 2. Summarize the time- course for resolution of acute symptoms and/or regressed behaviors. 3. Describe issues identified and worked on during hospitalization. 4. Describe medication utilized. 5. Describe medical problems identified and treated. 6. Reassessment of suicide risk Summary of Hospital Course: Pt is a 27 year old single CF, who lives with her boyfriend and currently unemployed, came to the ED with depression and suicidal thoughts no plan. Patient has a long history of bipolar disorder. She has been hospitalized multiple times in psych as well as detox. She was last admitted onto to [facility] in July 2017 for depression and heroin detox and most recently on detox 09/15- 09/20/17 for heroin use. Pt reports she is under the care of her PCP Dr. Neymar Posey and is being prescribed prozac 20mg po daily, neurontin 400mg po tid and seroquel 200mg po hs. Pt reports being compliant with her psychotropic medication. Pt denies compliance with outpt psychiatrist. She reports that she relapsed on heroin and cocaine as well as she finished her detox. She reports using 3-10 bags of heroin along with cocaine daily. Pt reports she has been feeling suicidal for the past 2 weeks with the precipitating factor being her drug use of heroin and cocaine. Pt reports if she is discharged she will overdose on heroin and cocaine. Pt states she last used heroin and cocaine yesterday. Pt also reports abusing xanax as well with last use on 12/30/17. Pt has some visible abraisons on face and arms. Pt reports family hx of heroin use. Pt reports depressed mood and reports feelings of hopelessness and helplessness. She also reports poor sleep and poor appetite. She reports sometimes irritability and agitation but denies any auditory or visual hallucinations or any paranoia. She also reports withdrawal symptoms including cramps, back pain, nausea , anxiety and sweating. PMH: None reported - Diagnosis (1) Bipolar disorder, curr episode mixed, severe, w/o psychotic features Current Visit: Yes Status: Acute (2) Opioid use disorder, severe, dependence Current Visit: No Status: Acute - Final Diagnosis (DSM 5) Condition upon Discharge: STABLE DSM 5: Bipolar disorder depressed severe without psychotic features Opioid use disorder severe Opioid withdrawal Cocaine use disorder severe Disposition: HOME/ ROUTINE Follow-up Treatment Plan: Bipolar disorder depressed severe without psychotic features CBT Psychoeducation Supportive therapy, group therapy, individual therapy Seroquel 200 mg PO QHS Gabapentin 300 mg po TID Fluoxetine 20 mg PO Daily Opioid use disorder severe CBT Psychoeducation Supportive therapy, individual therapy Use [place] for abstinence Opioid withdrawal CBT Psychoeducation Supportive therapy, individual therapy Clonidine when necessary Methadone taper Cocaine use disorder severe Monitor signs and symptoms Use [place] for abstinence Prescriptions/Medication Reconciliation: Divalproex [Depakote DR] 500 mg PO BID #60 tcp hydrOXYzine HCl [Atarax] 50 mg PO TID #90 tab Mirtazapine [Remeron] 30 mg PO HS #30 tab - Smoking Cessation Smoking Cessation Medication prescribed: No - Antipsychotic Medications Pt discharged on 2 or more routine antipsychotic medications: No
[2018-01-06] MEDS: Divalproex 500 mg DR Tab PO SCH (09:46)
--- NOTE | 2018-01-06 09:48 | PCM.PYCHPN ---
Psychiatric Progress Note - Psychiatric Progress Note Patient seen today, length of contact: 15 min Patient Chief Complaint: I m feeling much better.' Problems Identified/Issues Discussed: Patient seen and evaluated, chart reviewed and discussed with the nurse. She is going to [place]. Patient reports some improvement in her irritability and agitation. She reports improvement in withdrawal symptoms. She denies any auditory hallucinations and persecutory delusions. She is taking medication and denies any side effects. Symptoms are improving but she needs more time for stabilization. Supportive therapy and psychoeducation were given. Medication Change: Yes (d/c seroquel) Medical Record Reviewed: Yes Mental Status Examination - Cognitive Function Orientation: Person, Place, Situation, Time Memory: Intact Attention: WNL Concentration: Poor Association: WNL Fund of Knowledge: Poor - Mood Mood: Depressed, Anxious - Affect Affect: Constricted, Depressed - Speech Speech: Appropriate - Formal Thought Process Formal Thought Process: No Impairment - Suicidal Ideation Suicidal Ideation: No - Homicidal Ideation Homicidal Ideation: No Goal/Treatment Plan - Goal/Treatment Plan Need for Continued Stay: Severe depression anxiety, Severe functional impairment Progress Toward Problem(s) and Goals/Treatment Plan: Bipolar disorder depressed severe without psychotic features CBT Psychoeducation Supportive therapy, group therapy, individual therapy D/C Seroquel 200 mg PO QHS Start Remeron 30 mg PO QHS Fluoxetine 20 mg PO Daily Depakote DR 500 mg BID Busapar 10 mg PO TID Opioid use disorder severe CBT Psychoeducation Supportive therapy, individual therapy Use [place] for abstinence Opioid withdrawal CBT Psychoeducation Supportive therapy, individual therapy Clonidine when necessary Methadone taper Cocaine use disorder severe Monitor signs and symptoms Use [place] for abstinence
== END 2018-01-06 09:50 | disposition home or self-care (01) | DRG 430 ==
LOC: C.ER 00:19 → C.5E 03:09
PROVIDERS: ADMIT Psychiatry & Neurology Psychiatry; ATTEND Psychiatry & Neurology Psychiatry
PROC: GZHZZZZ Group Psychotherapy (ICD-10-PCS; principal; 2017-12-31)
PROC: HZ52ZZZ Individual Psychotherapy for Substance Abuse Treatment, Cognitive-Behavioral (ICD-10-PCS; 2017-12-31)
PROC: GZ58ZZZ Individual Psychotherapy, Cognitive-Behavioral (ICD-10-PCS; 2017-12-31)
PROC: GZ56ZZZ Individual Psychotherapy, Supportive (ICD-10-PCS; 2017-12-31)
PROC: HZ59ZZZ Individual Psychotherapy for Substance Abuse Treatment, Supportive (ICD-10-PCS; 2017-12-31)
PROC: HZ56ZZZ Individual Psychotherapy for Substance Abuse Treatment, Psychoeducation (ICD-10-PCS; 2017-12-31)
PROC: HZ2ZZZZ Detoxification Services for Substance Abuse Treatment (ICD-10-PCS; 2017-12-31)
PROC: HZ42ZZZ Group Counseling for Substance Abuse Treatment, Cognitive-Behavioral (ICD-10-PCS; 2017-12-31)
PROC: HZ46ZZZ Group Counseling for Substance Abuse Treatment, Psychoeducation (ICD-10-PCS; 2017-12-31)
DX: F31.4 Bipolar disorder, current episode depressed, severe, without psychotic features (principal); F11.23 Opioid dependence with withdrawal; F14.20 Cocaine dependence, uncomplicated; F41.9 Anxiety disorder, unspecified; R45.851 Suicidal ideations

== ENCOUNTER → 2018-01-08 14:32 | Emergency (ER) | payer MEDICAID ==
[2018-01-08 14:33] VITALS: BMI 17.2
== END | disposition left against medical advice (07) ==
LOC: C.ER 14:32
DX: Z02.89 Encounter for other administrative examinations (principal)

== ENCOUNTER 2018-01-18 06:44 | Emergency (ER) | payer MEDICAID ==
[2018-01-18 06:44] VITALS: BMI 17.2
[2018-01-18 06:58] VITALS: BP 122/79; PULSE 84; RESP 20; TEMP 98.8; O2SAT 96
[2018-01-18 08:10] LABS: BASO # 0.1 K/uL (0.0-0.2); BASO % 1.1 % (0.0-2.0); EOS # 0.2 K/uL (0.0-0.7); EOS % 2.1 % (0.0-4.0); HEMOGLOBIN 12.2 g/dL (11.0-16.0); LYMPH # 1.8 K/uL (1.0-4.3); LYMPH % 20.1 % (20.0-40.0); MEAN CELL VOLUME 84.5 fL (81.0-99.0); MEAN CORPUSCULAR HGB CONC 34.4 g/dL (33.0-37.0); MEAN PLATELET VOLUME 6.7 fL (7.2-11.7); MONO # 0.8 K/uL (0.0-0.8); MONO % 8.8 % (0.0-10.0); NEUT # 6.1 K/uL (1.8-7.0); NEUT % 67.9 % (50.0-75.0); RBC 4.2 Mil/uL (3.80-5.20); RED CELL DISTRIBUTION WIDTH 14.9 % (11.5-14.5)
--- NOTE | 2018-01-18 08:35 | C.PDOC ---
History Of Present Illness 27 y/o female with history of heroin abuse presents to ED requesting detox from heroin. Patient reports last used was earlier today and states if she does not get detox bed, she will kill herself. Patient denies HI or any other physical complaints at this time. Time Seen by Provider: 01/18/18 07:13 Chief Complaint (Nursing): Psychiatric Evaluation History Per: Patient History/Exam Limitations: no limitations Onset/Duration Of Symptoms: Days Current Symptoms Are (Timing): Still Present Suicide/Self Injury Attempted (Context): None Past Medical History Reviewed: Historical Data, Nursing Documentation, Vital Signs Vital Signs: Last Vital Signs Temp 98.8 F 01/18/18 06:52 Pulse 84 01/18/18 06:52 Resp 20 01/18/18 06:52 BP 122/79 01/18/18 06:52 Pulse Ox 96 01/18/18 14:20 - Medical History PMH: Anxiety, Depression, Hepatitis (C per pt) Surgical History: No Surg Hx - [facility] DETOXIFICATION SERVICES FOR SUBSTANCE ABUSE TREATMENT (12/31/17) GROUP TOP LIFT SCOURER FOR SUBSTANCE ABUSE TREATMENT, PSYCHOEDUCATION (12/31/17) GROUP TOP LIFT SCOURER FOR SUBSTANCE ABUSE, COGNITIVE BEHAVIORAL (12/31/17) GROUP PSYCHOTHERAPY (12/31/17) INDIV PSYCHOTHERAPY FOR SUBSTANCE ABUSE TREATMENT, SUPPORT (12/31/17) INDIV PSYCHOTHERAPY FOR SUBSTANCE ABUSE, COGNITIV BEHAVIORAL (12/31/17) INDIV PSYCHOTHERAPY FOR SUBSTANCE ABUSE, PSYCHOEDUCATION (12/31/17) INDIVIDUAL PSYCHOTHERAPY, COGNITIVE-BEHAVIORAL (12/31/17) INDIVIDUAL PSYCHOTHERAPY, SUPPORTIVE (12/31/17) MANUAL REMOVAL-PLACENTA (09/16/13) MEDICATION MANAGEMENT (07/03/17) PHARMACOTHERAPY FOR SUBSTANCE ABUSE, METHADONE MAINT (07/03/17) PHARMACOTHERAPY FOR SUBSTANCE ABUSE, OTH REPLACE MED (08/08/16) Family History: States: No Known Family Hx - Social History Hx Tobacco Use: Yes Hx Alcohol Use: No Hx Substance Use: Yes - Immunization History Hx Tetanus Toxoid Vaccination: Yes Hx Influenza Vaccination: Yes Hx Pneumococcal Vaccination: No Review Of Systems Constitutional: Negative for: Fever, Chills Cardiovascular: Negative for: Chest Pain Respiratory: Negative for: Shortness of Breath Skin: Negative for: Rash Psych: Positive for: Suicidal ideation. Negative for: Depression, Withdrawal Physical Exam - Physical Exam Appears: Non-toxic, No Acute Distress Skin: Warm, Dry, No Rash Head: Atraumatic, Normacephalic Eye(s): bilateral: Normal Inspection Oral Mucosa: Moist Neck: Normal ROM, Supple Chest: Symmetrical, No Tenderness Cardiovascular: Rhythm Regular, No Friction Rub, No Murmur Respiratory: Normal Breath Sounds, No Rales, No Rhonchi, No Wheezing Gastrointestinal/Abdominal: Soft, No Tenderness, No Guarding, No Rebound Extremity: Normal ROM, Capillary Refill (<2 seconds), No Swelling Neurological/Psych: Oriented x3, Normal Speech, Normal Motor Gait: Steady ED Course And Treatment - Laboratory Results Result Diagrams: 01/18/18 08:07 01/18/18 08:07 O2 Sat by Pulse Oximetry: 96 (RA) Pulse Ox Interpretation: Normal Medical Decision Making Medical Decision Making: Progress: Detox bed available, pt was calm and requested a nicotine patch, patch was given Patient found in bathroom smoking crack from pipe and was told she was not going to be admitted for detox bed Patient stated she was suicidal Case d/w psychiatrist transportation department head, states pt is using suicidal for manipulation and does not meet admission criteria. Patient will be discharged home with outpatient follow up. Disposition - Disposition Referrals: Neymar Posey MD [Medical Doctor] - Disposition: HOME/ ROUTINE Disposition Time: 08:34 Condition: GOOD Additional Instructions: Return if worsened. Instructions: Narcotic Overdose (DC) Forms: [facility] (Malay) - Clinical Impression Clinical Impression: Opiate dependence - PA / PLUG WIRER / Resident Statement MD/DO has reviewed & agrees with the documentation as recorded. - Scribe Statement The provider has reviewed the documentation as recorded by the Scribraven Grimes All medical record entries made by the Edilmaibraven were at my direction and personally dictated by me. I have reviewed the chart and agree that the record accurately reflects my personal performance of the history, physical exam, medical decision making, and the department course for this patient. I have also personally directed, reviewed, and agree with the discharge instructions and disposition.
[2018-01-18 08:40] LABS: ALB/GLOB RATIO 1.3 (1.0-2.1); ALBUMIN 4.7 g/dL (3.5-5.0); ALT/SGPT 14 U/L (9-52); AST/SGOT 28 U/L (14-36); BLOOD UREA NITROGEN 17 mg/dL (7-17); CALCIUM 9.2 mg/dl (8.6-10.4); GFR AFRICAN-AMERICAN > 60; GFR NON-AFRICAN AMERICAN > 60
== END 2018-01-18 08:45 | disposition home or self-care (01) ==
LOC: C.ER 06:44
DX: F11.20 Opioid dependence, uncomplicated (principal)

== ENCOUNTER 2018-02-02 16:09 | Emergency (ER) | payer MEDICAID ==
[2018-02-02 16:10] VITALS: BMI 17.2
[2018-02-02 16:14] VITALS: BP 94/58; PULSE 68; RESP 16; TEMP 98; O2SAT 98
--- NOTE | 2018-02-02 16:37 | C.PDOC ---
History Of Present Illness 27 yo female IVDA come in for evaluation of B/L thigh " rash developed for past few days, itchy". noted multiple small localized skin abscesses to B/L UEs. Otherwise, pt denies fever, chills, recent illness, wound draining, denies throat tightness or swelling, cough, wheezing, CP, SOB, dyspnea, abd. pain, V/D , UTI sx. Ambulate to Ed for evaluation, not in any apparent distress. Time Seen by Provider: 02/02/18 16:10 Chief Complaint (Nursing): Abnormal Skin Integrity History Per: Patient Past Medical History Reviewed: Historical Data, Nursing Documentation, Vital Signs Vital Signs: Last Vital Signs Temp 98 F 02/02/18 16:12 Pulse 68 02/02/18 16:12 Resp 16 02/02/18 16:12 BP 94/58 L 02/02/18 16:12 Pulse Ox 98 02/02/18 16:12 - Medical History PMH: Anxiety, Depression, Hepatitis (C per pt) Denies: Diabetes, HIV, HTN, Chronic Kidney Disease, Seizures, Sexually Transmitted Disease - [facility] Procedures DETOXIFICATION SERVICES FOR SUBSTANCE ABUSE TREATMENT (12/31/17) GROUP FREIGHT RATE SPECIALIST FOR SUBSTANCE ABUSE TREATMENT, PSYCHOEDUCATION (12/31/17) GROUP FREIGHT RATE SPECIALIST FOR SUBSTANCE ABUSE, COGNITIVE BEHAVIORAL (12/31/17) GROUP PSYCHOTHERAPY (12/31/17) INDIV PSYCHOTHERAPY FOR SUBSTANCE ABUSE TREATMENT, SUPPORT (12/31/17) INDIV PSYCHOTHERAPY FOR SUBSTANCE ABUSE, COGNITIV BEHAVIORAL (12/31/17) INDIV PSYCHOTHERAPY FOR SUBSTANCE ABUSE, PSYCHOEDUCATION (12/31/17) INDIVIDUAL PSYCHOTHERAPY, COGNITIVE-BEHAVIORAL (12/31/17) INDIVIDUAL PSYCHOTHERAPY, SUPPORTIVE (12/31/17) MANUAL REMOVAL-PLACENTA (09/16/13) MEDICATION MANAGEMENT (07/03/17) PHARMACOTHERAPY FOR SUBSTANCE ABUSE, METHADONE MAINT (07/03/17) PHARMACOTHERAPY FOR SUBSTANCE ABUSE, OTH REPLACE MED (08/08/16) Family History: States: Unknown Family Hx - Social History Hx Tobacco Use: Yes Hx Alcohol Use: No Hx Substance Use: Yes - Immunization History Hx Tetanus Toxoid Vaccination: Yes Hx Influenza Vaccination: Yes Hx Pneumococcal Vaccination: No Review Of Systems Except As Marked, All Systems Reviewed And Found Negative. Constitutional: Negative for: Fever, Chills Eyes: Negative for: Vision Change ENT: Negative for: Throat Pain, Throat Swelling Cardiovascular: Negative for: Chest Pain, Palpitations, Edema, Light Headedness Respiratory: Negative for: Cough, Shortness of Breath, Wheezing Gastrointestinal: Negative for: Nausea, Vomiting, Abdominal Pain Musculoskeletal: Negative for: Neck Pain, Back Pain Skin: Positive for: Lesions Neurological: Negative for: Headache, Dizziness Physical Exam - Physical Exam Appears: Well, Non-toxic, No Acute Distress Skin: Normal Color, Warm, Dry, Other (multiple furuncles to B/L UEs, multiple small open wounds covered by scabs to B/L arms and anterior aspect B/L thighs. Mild erythema, No flactulance.) Head: Normacephalic Eye(s): bilateral: PERRL Ear(s): Bilateral: Normal Nose: No Discharge Oral Mucosa: Moist, No Drooling, No Trismus Tongue: No Swelling Lips: No Swelling Throat: No Erythema, No Drooling Neck: Trachea Midline, Supple Cardiovascular: Rhythm Regular, No Murmur, No JVD Respiratory: No Decreased Breath Sounds, No Accessory Muscle Use, No Stridor, No Wheezing Gastrointestinal/Abdominal: Soft, No Distention, No Guarding, No Rebound Back: No CVA Tenderness Extremity: Normal ROM, No Pedal Edema, No Deformity, No Swelling Neurological/Psych: Oriented x3, Normal Speech, Normal Motor, Normal Sensation, Normal Reflexes ED Course And Treatment O2 Sat by Pulse Oximetry: 98 Pulse Ox Interpretation: Normal Progress Note: Was offered IV abx tx, pt refused. pt is afebrile, hemodynamicaly stable. Tolerate Po well in Ed. PulseOx 98% RA. Neck: Supple, (-)meningeal sign. ENT: no acute findings. Lungs: CTA B/L, BS equal B/L. CVS : (+)S1S2, reg, (-) murmur. Abd: benign, (-) guarding, (-) rebound. Skin: furunculosis with multiple skin lesions, early cellulitis, no flactulance. Pt advised and ref. to f/u with PMD in 2-3 days for re-eavl. return if any new changes. Disposition Counseled Patient/Family Regarding: Diagnosis, Need For Followup, Rx Given - Disposition Referrals: [facility] [Outside] Disposition: HOME/ ROUTINE Disposition Time: 16:35 Condition: STABLE Additional Instructions: Warm salty water compresses to painful areas take medication as prescribed Follow up with PMD in 2-3 days for re-evaluation. return if any worsening or new changes. Prescriptions: Doxycycline Hyclate [Doryx] 100 mg PO BID #20 cap Instructions: Cellulitis (Skin Infection), Adult (DC), Skin Abscess - Clinical Impression Clinical Impression: Abscess, Cellulitis
== END 2018-02-02 16:50 | disposition home or self-care (01) ==
LOC: C.ER 16:09
DX: L02.414 Cutaneous abscess of left upper limb (principal); L02.413 Cutaneous abscess of right upper limb; L02.416 Cutaneous abscess of left lower limb; L02.415 Cutaneous abscess of right lower limb; L03.114 Cellulitis of left upper limb; L03.113 Cellulitis of right upper limb; L03.116 Cellulitis of left lower limb; L03.115 Cellulitis of right lower limb

== ENCOUNTER → 2018-07-04 19:50 | Emergency (ER) | payer MEDICAID ==
[2018-07-04 19:51] VITALS: BMI 17.2
== END | disposition left against medical advice (07) ==
LOC: C.ER 19:50
DX: Z02.89 Encounter for other administrative examinations (principal); K08.89 Other specified disorders of teeth and supporting structures

== ENCOUNTER 2018-09-06 18:22 | Emergency (ER) | payer MEDICAID ==
[2018-09-06 18:22] VITALS: BMI 17.2
[2018-09-06 18:34] VITALS: RESP 18; O2SAT 97
--- NOTE | 2018-09-06 19:50 | C.PDOC ---
History Of Present Illness pt who used to inject heroin, but stopped 2.5 weeks ago presents with a few abscess on both forearms, after she"picked "at them. No f/c/n/v. moves all extremities, good pulses Time Seen by Provider: 09/06/18 19:49 Chief Complaint (Nursing): Abnormal Skin Integrity History Per: Patient History/Exam Limitations: no limitations Onset/Duration Of Symptoms: Days Current Symptoms Are (Timing): Still Present Location Of Injury: Right: Forearm, Left: Forearm Quality Of Symptoms: Swollen, Draining Severity: Moderate Pain Scale Rating Of: 3 Recent travel outside of the [place]: No Additional History Per: Patient Past Medical History Reviewed: Historical Data, Nursing Documentation, Vital Signs Vital Signs: Last Vital Signs Temp 98.2 F 09/06/18 18:28 Pulse 91 H 09/06/18 18:28 Resp 18 09/06/18 18:28 BP 103/71 09/06/18 18:28 Pulse Ox 97 09/06/18 18:28 - Medical History PMH: Anxiety, Depression, Hepatitis (C per pt) Denies: Diabetes, HIV, HTN, Chronic Kidney Disease, Seizures, Sexually Transmitted Disease - [facility] Procedures DETOXIFICATION SERVICES FOR SUBSTANCE ABUSE TREATMENT (12/31/17) GROUP PICK UP TRUCK DRIVER FOR SUBSTANCE ABUSE TREATMENT, PSYCHOEDUCATION (12/31/17) GROUP PICK UP TRUCK DRIVER FOR SUBSTANCE ABUSE, COGNITIVE BEHAVIORAL (12/31/17) GROUP PSYCHOTHERAPY (12/31/17) INDIV PSYCHOTHERAPY FOR SUBSTANCE ABUSE TREATMENT, SUPPORT (12/31/17) INDIV PSYCHOTHERAPY FOR SUBSTANCE ABUSE, COGNITIV BEHAVIORAL (12/31/17) INDIV PSYCHOTHERAPY FOR SUBSTANCE ABUSE, PSYCHOEDUCATION (12/31/17) INDIVIDUAL PSYCHOTHERAPY, COGNITIVE-BEHAVIORAL (12/31/17) INDIVIDUAL PSYCHOTHERAPY, SUPPORTIVE (12/31/17) MANUAL REMOVAL-PLACENTA (09/16/13) MEDICATION MANAGEMENT (07/03/17) PHARMACOTHERAPY FOR SUBSTANCE ABUSE, METHADONE MAINT (07/03/17) PHARMACOTHERAPY FOR SUBSTANCE ABUSE, OTH REPLACE MED (08/08/16) Family History: States: Unknown Family Hx - Social History Hx Tobacco Use: Yes Hx Alcohol Use: No Hx Substance Use: Yes - Immunization History Hx Tetanus Toxoid Vaccination: Yes Hx Influenza Vaccination: Yes Hx Pneumococcal Vaccination: No Review Of Systems Constitutional: Negative for: Fever, Chills Respiratory: Negative for: Shortness of Breath Gastrointestinal: Negative for: Abdominal Pain Musculoskeletal: Negative for: Back Pain Skin: Positive for: Lesions (abscess on both forearms, ) Neurological: Negative for: Weakness Psych: Negative for: Anxiety Physical Exam - Physical Exam Appears: Non-toxic, No Acute Distress Skin: Warm, Dry, Other (r forearm 2x3 cm dorsum abscess, 3x4 sm left fore arm abscess, mild erythema) Lymphatic: No Axilla Node Tenderness Cardiovascular: Rhythm Regular Respiratory: No Rales, No Rhonchi, No Wheezing Extremity: Normal ROM Neurological/Psych: Oriented x3 Gait: Steady ED Course And Treatment O2 Sat by Pulse Oximetry: 97 Medical Decision Making Medical Decision Making: Upon provider reevaluation patient is feeling better, is medically stable, and requires no further treatment in the ED at this time. Patient will be discharged home with Rx for keflex, bactrim and miralax . Counseling was provided and all questions were answered regarding diagnosis and need for follow up with dr posey. There is agreement to discharge plan. Return if symptoms persist or worsen. Disposition Counseled Patient/Family Regarding: Studies Performed, Diagnosis, Need For Followup, Rx Given - Disposition Referrals: Neymar Posey MD [Medical Doctor] - Disposition: HOME/ ROUTINE Disposition Time: 19:50 Condition: FAIR Additional Instructions: Please return if symptoms recur, or you have fever, chills, red streaks expanding Prescriptions: Cephalexin [cephalexin] 500 mg PO TID #21 cap Polyethylene Glycol 3350 [Miralax] 17 gm PO DAILY #270 ml Sulfamethoxazole/Trimethoprim [Bactrim DS 800 mg-160 mg] 1 tab PO BID #14 tab Instructions: Boil (DC) Forms: [employer] (Botswanan) - Clinical Impression Clinical Impression: Abscess
[2018-09-06] MEDS ORDERED: Tmp-Smz 800 mg-160 mg DS Tab PO STA (20:03)
[2018-09-06] MEDS ORDERED: Magnesium Citrate Oral SOL (300 ml) PO ONE (20:04)
[2018-09-06] MEDS ORDERED: Magnesium Citrate Oral SOL (300 ml) ONE (20:12)
[2018-09-06] MEDS ORDERED: Tmp-Smz 800 mg-160 mg DS Tab ONE (20:12)
[2018-09-06 20:23] VITALS: BP 110/76; PULSE 82; TEMP 98.4
== END 2018-09-06 20:23 | disposition home or self-care (01) ==
LOC: C.ER 18:22
DX: L02.414 Cutaneous abscess of left upper limb (principal); L02.413 Cutaneous abscess of right upper limb; Z72.0 Tobacco use; F32.9 Major depressive disorder, single episode, unspecified

== ENCOUNTER 2018-11-19 17:30 | Inpatient (IN) | payer MEDICAID | END 2018-11-22 13:40 | disposition left against medical advice (07) | DRG 277 | LOC: C.ER 17:30 → C.3T 11-22 11:38 → C.9E 19:12 → C.3T 19:38 | PROC: GZ56ZZZ Individual Psychotherapy, Supportive (ICD-10-PCS; principal; 2018-11-22) | DX: L03.115 Cellulitis of right lower limb (principal); F11.20 Opioid dependence, uncomplicated; B19.20 Unspecified viral hepatitis C without hepatic coma; R64 Cachexia; F14.20 Cocaine dependence, uncomplicated; L03.116 Cellulitis of left lower limb; F17.200 Nicotine dependence, unspecified, uncomplicated; F31.4 Bipolar disorder, current episode depressed, severe, without psychotic features; F41.9 Anxiety disorder, unspecified ==